=== PATIENT | female | born 1950 | race Caucasian/White ===

== ENCOUNTER 2022-09-21 01:31 | Inpatient (IN) ==
[2022-09-21 02:05] LABS: Basophils # 0.1 10*3/uL (0.0-0.2); Basophils % 0.6 % (0.0-0.8); Eosinophils # 0.4 10*3/uL (0.0-0.87); Eosinophils % 4.4 % (0.00-10.9); Hematocrit 35.6 VOL% (35.7-47.0); Hemoglobin 11.6 GM/DL (12.0-16.0); Immature Granulocytes % 0.3 %; Immature Granulocytes Absolute 0.02 #; Lymphocytes # 2.6 10*3/uL (1.4-4.0); Lymphocytes % 32.4 % (21.3-54.2); Mean Corpuscular HGB Conc 32.6 GM/DL (32-36); Mean Corpuscular Volume 94.4 FL (87-102); Mean Platelet Volume 11.3 FL (9.6-12.0); Monocytes # 0.6 10*3/uL (0.11-0.8); Monocytes % 7.6 % (1.7-12.7); Neutrophils % 54.7 % (38.7-73.9); Platelet Count 162 T/CUMM (130-400); Red Blood Count 3.77 MC/CUMM (3.8-5.5); Red Cell Distribution Width 15.5 % (9.3-17.3); White Blood Count 7.9 T/CUMM (4-12)
[2022-09-21 02:17] LABS: INR 1.1
[2022-09-21 02:18] LABS: Albumin 3.8 G/DL (3.4-5.0); Bilirubin,Total 0.8 MG/DL (0.20-1.00); Calcium 9.4 MG/DL (8.5-10.1); Osmolality,Calculated 282.8 MOS/KG (273-304); Potassium 4.1 MMOL/L (3.5-5.1); Total Protein 6.7 G/DL (6.4-8.2)
[2022-09-21] MEDS ORDERED: ALUMINUM/MAGNES/SIMETH MAX STR 30 ML UDCUP PO PRN (03:40)
[2022-09-21] MEDS ORDERED: ACETAMINOPHEN 325 MG TABLET PO PRN (03:40)
[2022-09-21 03:58] LABS: Arterial Base Excess iSTAT -1 MMOL/L (-2.5-2.5); Arterial Bicarbonate iSTAT 21.6 MMOL/L (20-26); Arterial O2 Saturation iSTAT 94 % (95-100); Arterial PCO2 iSTAT 29 MM HG (35-48); Arterial PO2 iSTAT 63 MM HG (80-95); Arterial Total CO2 iSTAT 23 MMO/L (23-27); Arterial pH iSTAT 7.489 (7.35-7.45)
[2022-09-21] MEDS: ALBUTEROL 2.5 MG/3 ML NEB RESP TX SCH ×4 (04:05→19:21)
[2022-09-21] MEDS: cefTRIAXone 1,000 MG in SODIUM CHLORIDE 0.9% 100 ML IV SCH (04:30)
[2022-09-21] MEDS: AZITHROMYCIN INJ 500 MG in SODIUM CHLORIDE 0.9% 250 ML IV SCH (05:20)
[2022-09-21] MEDS ORDERED: MORPHINE 2 MG/1 ML SYRINGE IV STA (05:56)
[2022-09-21] MEDS ORDERED: MORPHINE 2 MG/1 ML SYRINGE ONE (05:57)
[2022-09-21] MEDS ORDERED: FUROSEMIDE 40 MG/4 ML VIAL IV STA (06:21)
[2022-09-21] MEDS ORDERED: COLCHICINE 0.6 MG CAPSULE PO PRN (07:53)
[2022-09-21] MEDS ORDERED: CYANOCOBALAMIN 500 MCG TABLET PO SCH (09:00)
[2022-09-21] MEDS: APIXABAN 2.5 MG TABLET PO SCH ×2 (10:48→21:58)
[2022-09-21] MEDS: allopurinoL 300 MG TABLET PO SCH (10:51)
[2022-09-21] MEDS: MULTIVITAMIN (CENTRUM) TABLET PO SCH (10:51)
[2022-09-21] MEDS: CLOPIDOGREL 75 MG TABLET PO SCH (10:52)
[2022-09-21] MEDS: POTASSIUM CHLORIDE 20 MEQ TABLET PO SCH (10:53)
[2022-09-21] MEDS: ASCORBIC ACID 500 MG TABLET PO SCH (10:53)
[2022-09-21] MEDS: PANTOPRAZOLE 40 MG TABLET PO SCH (10:53)
[2022-09-21] MEDS: TOBRAMYCIN/DEXAMETHASONE 0.3%-0.1% OPH SUSP 2.5 ML BOTTLE LEFT EYE SCH ×4 (10:54→22:07)
[2022-09-21] MEDS: NABUMETONE 500 MG TABLET PO SCH ×2 (10:55→21:58)
[2022-09-21] MEDS: POLYETHYLENE GLYCOL POWDER 17 GM PACK PO SCH (10:55)
[2022-09-21] MEDS: PILOCARPINE 5 MG TABLET PO SCH (10:56)
[2022-09-21] MEDS: NITROGLYCERIN 2% OINT 1 INCH/GM PACK TOP SCH (10:56)
[2022-09-21] MEDS ORDERED: GLUCAGON 1 MG VIAL IM PRN (11:37)
[2022-09-21] MEDS ORDERED: DEXTROSE 10% 250 ML BAG IV PRN (11:37)
[2022-09-21] MEDS: DOCUSATE SODIUM 100 MG CAPSULE PO SCH ×2 (13:09→21:58)
[2022-09-21] MEDS: HYDROXYCHLOROQUINE 200 MG TABLET PO SCH (13:09)
[2022-09-21] MEDS: SPIRONOLACTONE 25 MG TABLET PO SCH (13:53)
[2022-09-21] MEDS: BRIMONIDINE 0.1% OPH SOLN 5 ML BOTTLE BOTH EYES SCH ×2 (13:54→22:03)
[2022-09-21] MEDS: CYANOCOBALAMIN 500 MCG TABLET PO SCH (13:54)
[2022-09-21] MEDS: FUROSEMIDE 40 MG/4 ML VIAL IV SCH (13:54)
[2022-09-21] MEDS: INSULIN REGULAR 100 UNIT/ML SUBCUT SCH (18:23)
[2022-09-21] MEDS: ASPIRIN CHEW 81 MG TABLET PO SCH (21:58)
[2022-09-21] MEDS: ROSUVASTATIN 20 MG TABLET PO SCH (21:58)
[2022-09-22] MEDS: ALBUTEROL 2.5 MG/3 ML NEB RESP TX SCH ×4 (00:20→19:30)
[2022-09-22] MEDS ORDERED: FUROSEMIDE 40 MG/4 ML VIAL IV STA (01:59)
[2022-09-22] MEDS: (Semaglutide [Ozempic] 0.25 mg or 0.5 mg(2 mg/1.5 mL) Pen Injecto SUBCUT SCH (03:49)
[2022-09-22 04:32] LABS: Basophils % 0.5 % (0.0-0.8); Eosinophils # 0.4 10*3/uL (0.0-0.87); Eosinophils % 4.7 % (0.00-10.9); Hematocrit 33.4 VOL% (35.7-47.0); Hemoglobin 10.7 GM/DL (12.0-16.0); Immature Granulocytes % 0.3 %; Immature Granulocytes Absolute 0.02 #; Lymphocytes % 26.6 % (21.3-54.2); Mean Corpuscular Volume 94.9 FL (87-102); Mean Platelet Volume 11.3 FL (9.6-12.0); Monocytes # 0.7 10*3/uL (0.11-0.8); Monocytes % 9.9 % (1.7-12.7); Platelet Count 150 T/CUMM (130-400); Red Blood Count 3.52 MC/CUMM (3.8-5.5); Red Cell Distribution Width 15.5 % (9.3-17.3); White Blood Count 7.4 T/CUMM (4-12)
[2022-09-22] MEDS: cefTRIAXone 1,000 MG in SODIUM CHLORIDE 0.9% 100 ML IV SCH (04:33)
[2022-09-22] MEDS: AZITHROMYCIN INJ 500 MG in SODIUM CHLORIDE 0.9% 250 ML IV SCH (05:06)
[2022-09-22] MEDS: BRIMONIDINE 0.1% OPH SOLN 5 ML BOTTLE BOTH EYES SCH ×3 (05:07→22:03)
[2022-09-22 05:11] LABS: Calcium 9.3 MG/DL (8.5-10.1); Osmolality,Calculated 280.1 MOS/KG (273-304); Potassium 3.8 MMOL/L (3.5-5.1); Thyroid Stimulating Hormone 2.69 uIU/ml (0.358-3.74)
[2022-09-22] MEDS ORDERED: DIAZEPAM 5 MG TABLET PO ONE (07:00)
[2022-09-22] MEDS ORDERED: diphenhydrAMINE CAP 25 MG CAPSULE PO ONE (07:00)
[2022-09-22] MEDS: ONDANSETRON 4 MG/2 ML VIAL IV PRN (07:00)
[2022-09-22] MEDS: INSULIN REGULAR 100 UNIT/ML SUBCUT SCH ×2 (08:13→18:31)
[2022-09-22] MEDS: CLOPIDOGREL 75 MG TABLET PO SCH (09:02)
[2022-09-22] MEDS: SPIRONOLACTONE 25 MG TABLET PO SCH (09:02)
[2022-09-22] MEDS: TOBRAMYCIN/DEXAMETHASONE 0.3%-0.1% OPH SUSP 2.5 ML BOTTLE LEFT EYE SCH ×4 (09:04→22:03)
[2022-09-22] MEDS: FUROSEMIDE 40 MG/4 ML VIAL IV SCH (09:04)
[2022-09-22] MEDS: APIXABAN 2.5 MG TABLET PO SCH ×2 (10:44→22:02)
[2022-09-22] MEDS: MULTIVITAMIN (CENTRUM) TABLET PO SCH (10:44)
[2022-09-22] MEDS: POTASSIUM CHLORIDE 20 MEQ TABLET PO SCH (10:44)
[2022-09-22] MEDS: DOCUSATE SODIUM 100 MG CAPSULE PO SCH ×2 (10:44→22:02)
[2022-09-22] MEDS: NITROGLYCERIN 2% OINT 1 INCH/GM PACK TOP SCH (10:45)
[2022-09-22] MEDS: POLYETHYLENE GLYCOL POWDER 17 GM PACK PO SCH (10:45)
[2022-09-22] MEDS: HYDROXYCHLOROQUINE 200 MG TABLET PO SCH (10:45)
[2022-09-22] MEDS: PANTOPRAZOLE 40 MG TABLET PO SCH (10:46)
[2022-09-22] MEDS: allopurinoL 300 MG TABLET PO SCH (10:46)
[2022-09-22] MEDS: ASCORBIC ACID 500 MG TABLET PO SCH (10:46)
[2022-09-22] MEDS: CYANOCOBALAMIN 500 MCG TABLET PO SCH (10:46)
[2022-09-22] MEDS: PILOCARPINE 5 MG TABLET PO SCH (10:46)
[2022-09-22] MEDS: NABUMETONE 500 MG TABLET PO SCH ×2 (10:46→22:02)
[2022-09-22] MEDS ORDERED: SODIUM CHLORIDE 0.45% 500 ML IV SCH (11:00)
[2022-09-22] MEDS ORDERED: HYDROmorphone 1 MG/1 ML SYRINGE ONE (12:13)
[2022-09-22] MEDS ORDERED: MIDAZOLAM 2 MG/2 ML VIAL ONE (12:13)
[2022-09-22] MEDS ORDERED: HEPARIN/NACL 0.9% 2 UNITS/ML 2,000 UNIT/1,000 ML BAG IV ONE (12:15)
[2022-09-22] MEDS ORDERED: NITROGLYCERIN DRIP 50 MG/250 ML BOTTLE IV ONE (12:23)
[2022-09-22] MEDS ORDERED: VERAPAMIL 5 MG/2 ML VIAL ONE (12:23)
[2022-09-22] MEDS ORDERED: ONDANSETRON 4 MG/2 ML VIAL ONE (12:36)
[2022-09-22] MEDS ORDERED: NALOXONE 0.4 MG/ML VIAL IV ONE (15:18)
[2022-09-22] MEDS ORDERED: flumazeniL 0.5 MG/5 ML VIAL IV ONE (15:30)
[2022-09-22] MEDS ORDERED: FUROSEMIDE 40 MG/4 ML VIAL IV SCH (16:00)
[2022-09-22 16:06] LABS: Arterial Base Excess iSTAT -2 MMOL/L (-2.5-2.5); Arterial Bicarbonate iSTAT 22.5 MMOL/L (20-26); Arterial O2 Saturation iSTAT 96 % (95-100); Arterial PCO2 iSTAT 36 MM HG (35-48); Arterial PO2 iSTAT 79 MM HG (80-95); Arterial Total CO2 iSTAT 24 MMO/L (23-27); Arterial pH iSTAT 7.402 (7.35-7.45)
[2022-09-22] MEDS ORDERED: BENZONATATE 100 MG CAPSULE PO PRN (18:27)
[2022-09-22] MEDS: ISOSORBIDE MONONITRATE 30 MG TABLET PO SCH (18:30)
[2022-09-22 21:43] LABS: Hyaline Casts,Urine 9 /LPF (0-3); Mucus,Urine Occasional /LPF (Occasional)
[2022-09-22 21:44] LABS: Bilirubin,Urine Negative (Negative); Blood, Urine Trace mg/dL (Negative); Glucose,Urine (UA) Negative (Negative); Ketones,Urine Negative (Negative); Nitrite,Urine Negative (Negative); Protein,Urine Negative (Negative); Urine Appearance Clear (Clear); Urine Color Yellow (Yellow); Urine Specific Gravity 1.015 (1.001-1.035); Urine Urobilinogen 0.2 eU/dL (<2.0)
[2022-09-22] MEDS: ASPIRIN CHEW 81 MG TABLET PO SCH (22:02)
[2022-09-22] MEDS: ROSUVASTATIN 20 MG TABLET PO SCH (22:02)
[2022-09-23] MEDS: ALBUTEROL 2.5 MG/3 ML NEB RESP TX SCH ×4 (00:35→19:40)
[2022-09-23] MEDS: cefTRIAXone 1,000 MG in SODIUM CHLORIDE 0.9% 100 ML IV SCH (04:42)
[2022-09-23 05:20] LABS: Basophils # 0.1 10*3/uL (0.0-0.2); Basophils % 0.7 % (0.0-0.8); Eosinophils # 0.3 10*3/uL (0.0-0.87); Eosinophils % 3.5 % (0.00-10.9); Hematocrit 33.3 VOL% (35.7-47.0); Hemoglobin 10.8 GM/DL (12.0-16.0); Immature Granulocytes % 0.3 %; Immature Granulocytes Absolute 0.02 #; Lymphocytes # 1.5 10*3/uL (1.4-4.0); Lymphocytes % 21.3 % (21.3-54.2); Mean Corpuscular HGB Conc 32.4 GM/DL (32-36); Mean Corpuscular Volume 95.7 FL (87-102); Monocytes # 0.8 10*3/uL (0.11-0.8); Monocytes % 10.4 % (1.7-12.7); Neutrophils % 63.8 % (38.7-73.9); Platelet Count 145 T/CUMM (130-400); Red Blood Count 3.48 MC/CUMM (3.8-5.5); Red Cell Distribution Width 15.3 % (9.3-17.3); White Blood Count 7.2 T/CUMM (4-12)
[2022-09-23 05:52] LABS: Calcium 9.4 MG/DL (8.5-10.1); Osmolality,Calculated 279.2 MOS/KG (273-304); Potassium 4.1 MMOL/L (3.5-5.1)
[2022-09-23] MEDS: BRIMONIDINE 0.1% OPH SOLN 5 ML BOTTLE BOTH EYES SCH ×4 (05:52→21:06)
[2022-09-23] MEDS: AZITHROMYCIN INJ 500 MG in SODIUM CHLORIDE 0.9% 250 ML IV SCH (05:52)
[2022-09-23] MEDS: ONDANSETRON 4 MG/2 ML VIAL IV PRN ×2 (06:45→23:44)
[2022-09-23] MEDS ORDERED: NITROGLYCERIN SL 0.4 MG TABLET SL ONE (07:00)
[2022-09-23] MEDS: APIXABAN 2.5 MG TABLET PO SCH ×3 (07:03→20:09)
[2022-09-23] MEDS: CLOPIDOGREL 75 MG TABLET PO SCH ×2 (07:03→10:02)
[2022-09-23] MEDS: ISOSORBIDE MONONITRATE 30 MG TABLET PO SCH ×2 (07:03→10:02)
[2022-09-23 07:27] LABS: Arterial Base Excess iSTAT -3 MMOL/L (-2.5-2.5); Arterial Bicarbonate iSTAT 21.7 MMOL/L (20-26); Arterial O2 Saturation iSTAT 93 % (95-100); Arterial PCO2 iSTAT 35 MM HG (35-48); Arterial PO2 iSTAT 66 MM HG (80-95); Arterial Total CO2 iSTAT 23 MMO/L (23-27); Arterial pH iSTAT 7.403 (7.35-7.45)
[2022-09-23] MEDS: FUROSEMIDE 40 MG/4 ML VIAL IV SCH ×2 (08:22→16:54)
[2022-09-23] MEDS: INSULIN REGULAR 100 UNIT/ML SUBCUT SCH ×2 (09:59→17:47)
[2022-09-23] MEDS: SPIRONOLACTONE 50 MG TABLET PO SCH (10:01)
[2022-09-23] MEDS: MULTIVITAMIN (CENTRUM) TABLET PO SCH (10:01)
[2022-09-23] MEDS: POLYETHYLENE GLYCOL POWDER 17 GM PACK PO SCH (10:02)
[2022-09-23] MEDS: DOCUSATE SODIUM 100 MG CAPSULE PO SCH ×2 (10:02→20:10)
[2022-09-23] MEDS: POTASSIUM CHLORIDE 20 MEQ TABLET PO SCH (10:02)
[2022-09-23] MEDS: DAPAGLIFLOZIN 10 MG TABLET PO SCH (10:02)
[2022-09-23] MEDS: HYDROXYCHLOROQUINE 200 MG TABLET PO SCH (10:02)
[2022-09-23] MEDS: ASCORBIC ACID 500 MG TABLET PO SCH (10:03)
[2022-09-23] MEDS: CYANOCOBALAMIN 500 MCG TABLET PO SCH (10:03)
[2022-09-23] MEDS: PILOCARPINE 5 MG TABLET PO SCH (10:03)
[2022-09-23] MEDS: PANTOPRAZOLE 40 MG TABLET PO SCH (10:03)
[2022-09-23] MEDS: NABUMETONE 500 MG TABLET PO SCH ×2 (10:03→20:09)
[2022-09-23] MEDS: AZITHROMYCIN 250 MG TABLET PO SCH (10:04)
[2022-09-23] MEDS: allopurinoL 300 MG TABLET PO SCH (10:04)
[2022-09-23] MEDS: TOBRAMYCIN/DEXAMETHASONE 0.3%-0.1% OPH SUSP 2.5 ML BOTTLE LEFT EYE SCH ×4 (10:05→20:12)
[2022-09-23] MEDS: RANOLAZINE 500 MG TABLET PO SCH ×2 (11:38→20:10)
[2022-09-23] MEDS: ASPIRIN CHEW 81 MG TABLET PO SCH (20:09)
[2022-09-23] MEDS: NITROGLYCERIN 2% OINT 1 INCH/GM PACK TOP SCH (20:09)
[2022-09-23] MEDS: ROSUVASTATIN 20 MG TABLET PO SCH (20:10)
[2022-09-23] MEDS ORDERED: MORPHINE 2 MG/1 ML SYRINGE IV ONE (23:35)
[2022-09-23] MEDS ORDERED: MORPHINE 2 MG/1 ML SYRINGE ONE (23:38)
[2022-09-24] MEDS: ALBUTEROL 2.5 MG/3 ML NEB RESP TX SCH ×4 (00:45→19:40)
[2022-09-24] MEDS: BRIMONIDINE 0.1% OPH SOLN 5 ML BOTTLE BOTH EYES SCH ×4 (05:29→21:41)
[2022-09-24 05:36] LABS: Basophils # 0.1 10*3/uL (0.0-0.2); Basophils % 0.6 % (0.0-0.8); Eosinophils # 0.4 10*3/uL (0.0-0.87); Eosinophils % 4.4 % (0.00-10.9); Hematocrit 30.9 VOL% (35.7-47.0); Immature Granulocytes % 0.5 %; Immature Granulocytes Absolute 0.04 #; Lymphocytes # 1.8 10*3/uL (1.4-4.0); Lymphocytes % 22.2 % (21.3-54.2); Mean Corpuscular HGB Conc 32.4 GM/DL (32-36); Mean Corpuscular Volume 95.1 FL (87-102); Mean Platelet Volume 11.3 FL (9.6-12.0); Monocytes % 12.2 % (1.7-12.7); Neutrophils % 60.1 % (38.7-73.9); Platelet Count 149 T/CUMM (130-400); Red Blood Count 3.25 MC/CUMM (3.8-5.5); Red Cell Distribution Width 15.2 % (9.3-17.3)
[2022-09-24 05:56] LABS: Potassium 3.5 MMOL/L (3.5-5.1)
[2022-09-24] MEDS: FUROSEMIDE 40 MG/4 ML VIAL IV SCH (08:42)
[2022-09-24] MEDS: INSULIN REGULAR 100 UNIT/ML SUBCUT SCH ×2 (08:42→17:04)
[2022-09-24] MEDS: POLYETHYLENE GLYCOL POWDER 17 GM PACK PO SCH (08:46)
[2022-09-24] MEDS: PANTOPRAZOLE 40 MG TABLET PO SCH (08:49)
[2022-09-24] MEDS: MULTIVITAMIN (CENTRUM) TABLET PO SCH (08:49)
[2022-09-24] MEDS: SPIRONOLACTONE 50 MG TABLET PO SCH (08:49)
[2022-09-24] MEDS: allopurinoL 300 MG TABLET PO SCH (08:49)
[2022-09-24] MEDS: PILOCARPINE 5 MG TABLET PO SCH (08:49)
[2022-09-24] MEDS: AZITHROMYCIN 250 MG TABLET PO SCH (08:49)
[2022-09-24] MEDS: ASCORBIC ACID 500 MG TABLET PO SCH (08:50)
[2022-09-24] MEDS: POTASSIUM CHLORIDE 20 MEQ TABLET PO SCH (08:50)
[2022-09-24] MEDS: HYDROXYCHLOROQUINE 200 MG TABLET PO SCH (08:50)
[2022-09-24] MEDS: CLOPIDOGREL 75 MG TABLET PO SCH (08:50)
[2022-09-24] MEDS: DOCUSATE SODIUM 100 MG CAPSULE PO SCH ×2 (08:50→20:15)
[2022-09-24] MEDS: DAPAGLIFLOZIN 10 MG TABLET PO SCH (08:50)
[2022-09-24] MEDS: APIXABAN 2.5 MG TABLET PO SCH ×2 (08:50→20:15)
[2022-09-24] MEDS: CYANOCOBALAMIN 500 MCG TABLET PO SCH (08:50)
[2022-09-24] MEDS: NABUMETONE 500 MG TABLET PO SCH ×2 (08:50→20:15)
[2022-09-24] MEDS: RANOLAZINE 500 MG TABLET PO SCH ×2 (08:50→20:15)
[2022-09-24] MEDS: TOBRAMYCIN/DEXAMETHASONE 0.3%-0.1% OPH SUSP 2.5 ML BOTTLE LEFT EYE SCH ×4 (08:51→20:13)
[2022-09-24] MEDS: NITROGLYCERIN 2% OINT 1 INCH/GM PACK TOP SCH ×2 (08:51→20:15)
[2022-09-24] MEDS ORDERED: SODIUM PHOSPHATE ENEMA 133 ML BOTTLE RECTAL ONE (16:00)
[2022-09-24] MEDS: FUROSEMIDE 80 MG TABLET PO SCH (16:41)
[2022-09-24] MEDS: ROSUVASTATIN 20 MG TABLET PO SCH (20:14)
[2022-09-24] MEDS: ASPIRIN CHEW 81 MG TABLET PO SCH (20:15)
[2022-09-25] MEDS: ALBUTEROL 2.5 MG/3 ML NEB RESP TX SCH ×4 (00:35→19:35)
[2022-09-25] MEDS: BRIMONIDINE 0.1% OPH SOLN 5 ML BOTTLE BOTH EYES SCH ×3 (05:09→21:20)
[2022-09-25 05:22] LABS: Calcium 9.4 MG/DL (8.5-10.1); Osmolality,Calculated 286.8 MOS/KG (273-304); Potassium 3.6 MMOL/L (3.5-5.1)
[2022-09-25] MEDS ORDERED: MAGNESIUM HYDROXIDE SUSP 30 ML UDCUP PO ONE (08:57)
[2022-09-25] MEDS: CLOPIDOGREL 75 MG TABLET PO SCH (09:06)
[2022-09-25] MEDS: POTASSIUM CHLORIDE 20 MEQ TABLET PO SCH (09:06)
[2022-09-25] MEDS: NABUMETONE 500 MG TABLET PO SCH ×2 (09:06→20:10)
[2022-09-25] MEDS: NITROGLYCERIN 2% OINT 1 INCH/GM PACK TOP SCH (09:06)
[2022-09-25] MEDS: AZITHROMYCIN 250 MG TABLET PO SCH (09:06)
[2022-09-25] MEDS: RANOLAZINE 500 MG TABLET PO SCH ×2 (09:06→20:10)
[2022-09-25] MEDS: INSULIN REGULAR 100 UNIT/ML SUBCUT SCH ×2 (09:06→17:37)
[2022-09-25] MEDS: POLYETHYLENE GLYCOL POWDER 17 GM PACK PO SCH (09:06)
[2022-09-25] MEDS: ASCORBIC ACID 500 MG TABLET PO SCH (09:06)
[2022-09-25] MEDS: CYANOCOBALAMIN 500 MCG TABLET PO SCH (09:07)
[2022-09-25] MEDS: allopurinoL 300 MG TABLET PO SCH (09:07)
[2022-09-25] MEDS: MULTIVITAMIN (CENTRUM) TABLET PO SCH (09:07)
[2022-09-25] MEDS: APIXABAN 2.5 MG TABLET PO SCH ×2 (09:07→20:10)
[2022-09-25] MEDS: SPIRONOLACTONE 50 MG TABLET PO SCH (09:07)
[2022-09-25] MEDS: PILOCARPINE 5 MG TABLET PO SCH (09:07)
[2022-09-25] MEDS: HYDROXYCHLOROQUINE 200 MG TABLET PO SCH (09:07)
[2022-09-25] MEDS: DAPAGLIFLOZIN 10 MG TABLET PO SCH (09:07)
[2022-09-25] MEDS: PANTOPRAZOLE 40 MG TABLET PO SCH (09:07)
[2022-09-25] MEDS: FUROSEMIDE 80 MG TABLET PO SCH ×2 (09:08→16:07)
[2022-09-25] MEDS: TOBRAMYCIN/DEXAMETHASONE 0.3%-0.1% OPH SUSP 2.5 ML BOTTLE LEFT EYE SCH ×4 (09:08→20:10)
[2022-09-25] MEDS: DOCUSATE SODIUM 100 MG CAPSULE PO SCH ×2 (09:08→20:10)
[2022-09-25] MEDS ORDERED: metOLazone 2.5 MG TABLET PO ONE (10:38)
[2022-09-25] MEDS: ONDANSETRON 4 MG/2 ML VIAL IV PRN ×2 (12:31→15:50)
[2022-09-25] MEDS: PROMETHAZINE 25 MG/1 ML VIAL IM PRN ×2 (16:38→20:15)
[2022-09-25] MEDS: FUROSEMIDE 40 MG/4 ML VIAL IV SCH (16:38)
[2022-09-25] MEDS: ASPIRIN CHEW 81 MG TABLET PO SCH (20:10)
[2022-09-25] MEDS: ROSUVASTATIN 20 MG TABLET PO SCH (20:10)
[2022-09-26] MEDS: ALBUTEROL 2.5 MG/3 ML NEB RESP TX SCH ×4 (00:19→19:54)
[2022-09-26 05:14] LABS: Calcium 9.9 MG/DL (8.5-10.1); Osmolality,Calculated 283.4 MOS/KG (273-304); Potassium 4.2 MMOL/L (3.5-5.1)
[2022-09-26] MEDS: BRIMONIDINE 0.1% OPH SOLN 5 ML BOTTLE BOTH EYES SCH ×3 (05:40→21:34)
[2022-09-26] MEDS: FUROSEMIDE 40 MG/4 ML VIAL IV SCH (08:02)
[2022-09-26] MEDS: PILOCARPINE 5 MG TABLET PO SCH (08:07)
[2022-09-26] MEDS: HYDROXYCHLOROQUINE 200 MG TABLET PO SCH (08:07)
[2022-09-26] MEDS: DOCUSATE SODIUM 100 MG CAPSULE PO SCH ×2 (08:07→21:34)
[2022-09-26] MEDS: allopurinoL 300 MG TABLET PO SCH (08:07)
[2022-09-26] MEDS: CYANOCOBALAMIN 500 MCG TABLET PO SCH (08:07)
[2022-09-26] MEDS: NABUMETONE 500 MG TABLET PO SCH ×2 (08:07→21:34)
[2022-09-26] MEDS: AZITHROMYCIN 250 MG TABLET PO SCH (08:07)
[2022-09-26] MEDS: RANOLAZINE 500 MG TABLET PO SCH ×2 (08:07→21:34)
[2022-09-26] MEDS: DAPAGLIFLOZIN 10 MG TABLET PO SCH (08:07)
[2022-09-26] MEDS: MULTIVITAMIN (CENTRUM) TABLET PO SCH (08:08)
[2022-09-26] MEDS: CLOPIDOGREL 75 MG TABLET PO SCH (08:08)
[2022-09-26] MEDS: POTASSIUM CHLORIDE 20 MEQ TABLET PO SCH (08:08)
[2022-09-26] MEDS: APIXABAN 2.5 MG TABLET PO SCH ×2 (08:08→21:34)
[2022-09-26] MEDS: SPIRONOLACTONE 50 MG TABLET PO SCH (08:08)
[2022-09-26] MEDS: ASCORBIC ACID 500 MG TABLET PO SCH (08:08)
[2022-09-26] MEDS: PANTOPRAZOLE 40 MG TABLET PO SCH (08:09)
[2022-09-26] MEDS: TOBRAMYCIN/DEXAMETHASONE 0.3%-0.1% OPH SUSP 2.5 ML BOTTLE LEFT EYE SCH ×3 (08:11→21:34)
[2022-09-26] MEDS: ONDANSETRON 4 MG/2 ML VIAL IV PRN ×2 (08:17→21:45)
[2022-09-26] MEDS: POLYETHYLENE GLYCOL POWDER 17 GM PACK PO SCH (10:18)
[2022-09-26] MEDS: INSULIN REGULAR 100 UNIT/ML SUBCUT SCH ×2 (10:18→17:03)
[2022-09-26] MEDS ORDERED: DOBUTamine 500 MG/250 ML PREMIX IV ONE (11:02)
[2022-09-26] MEDS: DOBUTamine 500 MG/250 ML PREMIX IV SCH (11:30)
[2022-09-26] MEDS: ROSUVASTATIN 20 MG TABLET PO SCH (21:34)
[2022-09-26] MEDS: ASPIRIN CHEW 81 MG TABLET PO SCH (21:34)
[2022-09-26] MEDS: NITROGLYCERIN 2% OINT 1 INCH/GM PACK TOP SCH (21:34)
[2022-09-26] MEDS: PROMETHAZINE 25 MG/1 ML VIAL IM PRN (21:47)
[2022-09-26] MEDS: NYSTATIN 500,000 UNIT/5 ML UDCUP SWISH/SWAL SCH (23:35)
[2022-09-26] MEDS: CHLORHEXIDINE 0.12% ORAL RINSE 60 ML BOTTLE SWISH/SPIT SCH (23:35)
[2022-09-27] MEDS: APIXABAN 2.5 MG TABLET PO SCH ×3 (00:09→21:16)
[2022-09-27] MEDS: ASPIRIN CHEW 81 MG TABLET PO SCH ×2 (00:09→22:56)
[2022-09-27] MEDS: ROSUVASTATIN 20 MG TABLET PO SCH ×2 (00:09→22:56)
[2022-09-27] MEDS: DOCUSATE SODIUM 100 MG CAPSULE PO SCH ×3 (00:09→22:56)
[2022-09-27] MEDS: RANOLAZINE 500 MG TABLET PO SCH ×3 (00:10→22:58)
[2022-09-27] MEDS: NABUMETONE 500 MG TABLET PO SCH ×3 (00:10→22:58)
[2022-09-27] MEDS: ALBUTEROL 2.5 MG/3 ML NEB RESP TX SCH ×4 (00:44→20:05)
[2022-09-27 04:10] LABS: Basophils % 0.2 % (0.0-0.8); Eosinophils % 0.2 % (0.00-10.9); Hematocrit 32.7 VOL% (35.7-47.0); Hemoglobin 10.9 GM/DL (12.0-16.0); Immature Granulocytes % 0.5 %; Immature Granulocytes Absolute 0.06 #; Lymphocytes # 0.7 10*3/uL (1.4-4.0); Lymphocytes % 5.4 % (21.3-54.2); Mean Corpuscular HGB Conc 33.3 GM/DL (32-36); Mean Corpuscular Volume 92.6 FL (87-102); Mean Platelet Volume 11.1 FL (9.6-12.0); Monocytes # 1.2 10*3/uL (0.11-0.8); Monocytes % 8.9 % (1.7-12.7); Neutrophils % 84.8 % (38.7-73.9); Platelet Count 167 T/CUMM (130-400); Red Blood Count 3.53 MC/CUMM (3.8-5.5); Red Cell Distribution Width 15.4 % (9.3-17.3); White Blood Count 13.05 T/CUMM (4-12)
[2022-09-27 04:33] LABS: Calcium 9.5 MG/DL (8.5-10.1); Osmolality,Calculated 294.5 MOS/KG (273-304); Potassium 3.9 MMOL/L (3.5-5.1)
[2022-09-27] MEDS: BRIMONIDINE 0.1% OPH SOLN 5 ML BOTTLE BOTH EYES SCH ×3 (06:37→21:01)
[2022-09-27] MEDS: DOBUTamine 500 MG/250 ML PREMIX IV SCH (07:47)
[2022-09-27] MEDS: INSULIN REGULAR 100 UNIT/ML SUBCUT SCH ×3 (08:19→22:57)
[2022-09-27] MEDS: CHLORHEXIDINE 0.12% ORAL RINSE 60 ML BOTTLE SWISH/SPIT SCH ×2 (08:20→22:57)
[2022-09-27] MEDS: ONDANSETRON 4 MG/2 ML VIAL IV PRN ×3 (08:20→17:52)
[2022-09-27] MEDS: HYDROXYCHLOROQUINE 200 MG TABLET PO SCH (08:21)
[2022-09-27] MEDS: FUROSEMIDE 40 MG/4 ML VIAL IV SCH (08:27)
[2022-09-27] MEDS: PANTOPRAZOLE 40 MG TABLET PO SCH (08:28)
[2022-09-27] MEDS: NYSTATIN 500,000 UNIT/5 ML UDCUP SWISH/SWAL SCH ×5 (08:28→22:57)
[2022-09-27] MEDS: MULTIVITAMIN (CENTRUM) TABLET PO SCH (08:28)
[2022-09-27] MEDS: DAPAGLIFLOZIN 10 MG TABLET PO SCH (08:28)
[2022-09-27] MEDS: allopurinoL 300 MG TABLET PO SCH (08:28)
[2022-09-27] MEDS: POTASSIUM CHLORIDE 20 MEQ TABLET PO SCH (08:28)
[2022-09-27] MEDS: PILOCARPINE 5 MG TABLET PO SCH (08:28)
[2022-09-27] MEDS: CYANOCOBALAMIN 500 MCG TABLET PO SCH (08:29)
[2022-09-27] MEDS: SPIRONOLACTONE 50 MG TABLET PO SCH (08:29)
[2022-09-27] MEDS: ASCORBIC ACID 500 MG TABLET PO SCH (08:29)
[2022-09-27] MEDS: CLOPIDOGREL 75 MG TABLET PO SCH (08:29)
[2022-09-27] MEDS: NITROGLYCERIN 2% OINT 1 INCH/GM PACK TOP SCH (08:31)
[2022-09-27] MEDS: POLYETHYLENE GLYCOL POWDER 17 GM PACK PO SCH (08:32)
[2022-09-27] MEDS: TOBRAMYCIN/DEXAMETHASONE 0.3%-0.1% OPH SUSP 2.5 ML BOTTLE LEFT EYE SCH ×4 (08:32→20:55)
[2022-09-27 15:42] LABS: Arterial Base Excess iSTAT 3 MMOL/L (-2.5-2.5); Arterial Bicarbonate iSTAT 26.8 MMOL/L (20-26); Arterial O2 Saturation iSTAT 99 % (95-100); Arterial PCO2 iSTAT 38 MM HG (35-48); Arterial PO2 iSTAT 153 MM HG (80-95); Arterial Total CO2 iSTAT 28 MMO/L (23-27)
[2022-09-27] MEDS: PROMETHAZINE 25 MG/1 ML VIAL IM PRN ×2 (17:20→21:14)
[2022-09-28] MEDS: ALBUTEROL 2.5 MG/3 ML NEB RESP TX SCH ×4 (00:54→19:00)
[2022-09-28] MEDS: ONDANSETRON 4 MG/2 ML VIAL IV PRN ×2 (01:42→20:02)
[2022-09-28] MEDS: PROMETHAZINE 25 MG/1 ML VIAL IM PRN (02:00)
[2022-09-28] MEDS: APIXABAN 2.5 MG TABLET PO SCH ×3 (03:30→20:34)
[2022-09-28 05:08] LABS: Basophils % 0.1 % (0.0-0.8); Eosinophils # 0.1 10*3/uL (0.0-0.87); Eosinophils % 1.1 % (0.00-10.9); Hematocrit 30.8 VOL% (35.7-47.0); Hemoglobin 10.5 GM/DL (12.0-16.0); Immature Granulocytes % 0.5 %; Immature Granulocytes Absolute 0.05 #; Lymphocytes # 0.7 10*3/uL (1.4-4.0); Lymphocytes % 6.6 % (21.3-54.2); Mean Corpuscular HGB Conc 34.1 GM/DL (32-36); Mean Corpuscular Volume 90.6 FL (87-102); Mean Platelet Volume 11.6 FL (9.6-12.0); Monocytes % 9.1 % (1.7-12.7); Neutrophils % 82.6 % (38.7-73.9); Platelet Count 145 T/CUMM (130-400); Red Cell Distribution Width 15.2 % (9.3-17.3)
[2022-09-28 05:19] LABS: Calcium 9.4 MG/DL (8.5-10.1); Osmolality,Calculated 286.8 MOS/KG (273-304); Potassium 3.8 MMOL/L (3.5-5.1)
[2022-09-28] MEDS: DOBUTamine 500 MG/250 ML PREMIX IV SCH (05:20)
[2022-09-28] MEDS: BRIMONIDINE 0.1% OPH SOLN 5 ML BOTTLE BOTH EYES SCH ×3 (06:49→21:15)
[2022-09-28] MEDS: INSULIN REGULAR 100 UNIT/ML SUBCUT SCH ×4 (07:48→20:04)
[2022-09-28] MEDS ORDERED: BISACODYL 10 MG SUPP RECTAL ONE (10:12)
[2022-09-28] MEDS: MULTIVITAMIN (CENTRUM) TABLET PO SCH (10:47)
[2022-09-28] MEDS: DAPAGLIFLOZIN 10 MG TABLET PO SCH (10:47)
[2022-09-28] MEDS: POTASSIUM CHLORIDE 20 MEQ TABLET PO SCH (10:48)
[2022-09-28] MEDS: ASCORBIC ACID 500 MG TABLET PO SCH (10:49)
[2022-09-28] MEDS: NABUMETONE 500 MG TABLET PO SCH ×2 (10:50→20:36)
[2022-09-28] MEDS: CYANOCOBALAMIN 500 MCG TABLET PO SCH (10:50)
[2022-09-28] MEDS: RANOLAZINE 500 MG TABLET PO SCH (10:50)
[2022-09-28] MEDS: PILOCARPINE 5 MG TABLET PO SCH (10:50)
[2022-09-28] MEDS: CLOPIDOGREL 75 MG TABLET PO SCH (11:11)
[2022-09-28] MEDS: TOBRAMYCIN/DEXAMETHASONE 0.3%-0.1% OPH SUSP 2.5 ML BOTTLE LEFT EYE SCH ×4 (11:14→20:46)
[2022-09-28] MEDS: POLYETHYLENE GLYCOL POWDER 17 GM PACK PO SCH (11:14)
[2022-09-28] MEDS: DOCUSATE SODIUM 100 MG CAPSULE PO SCH ×2 (11:16→20:38)
[2022-09-28] MEDS: ISOSORBIDE MONONITRATE 30 MG TABLET PO SCH (11:16)
[2022-09-28] MEDS: NYSTATIN 500,000 UNIT/5 ML UDCUP SWISH/SWAL SCH ×4 (11:16→20:44)
[2022-09-28] MEDS: SPIRONOLACTONE 50 MG TABLET PO SCH (11:16)
[2022-09-28] MEDS: CHLORHEXIDINE 0.12% ORAL RINSE 60 ML BOTTLE SWISH/SPIT SCH ×2 (11:17→20:44)
[2022-09-28] MEDS: PANTOPRAZOLE 40 MG TABLET PO SCH (11:17)
[2022-09-28] MEDS: HYDROXYCHLOROQUINE 200 MG TABLET PO SCH (11:17)
[2022-09-28] MEDS: allopurinoL 300 MG TABLET PO SCH (11:18)
[2022-09-28] MEDS ORDERED: LACTULOSE 20 GM/30 ML UDCUP PO PRN (16:19)
[2022-09-28] MEDS: ROSUVASTATIN 20 MG TABLET PO SCH (20:34)
[2022-09-28] MEDS: ASPIRIN CHEW 81 MG TABLET PO SCH (20:34)
[2022-09-29] MEDS: ALBUTEROL 2.5 MG/3 ML NEB RESP TX SCH ×4 (01:04→19:15)
[2022-09-29] MEDS: DOBUTamine 500 MG/250 ML PREMIX IV SCH ×2 (02:30→22:29)
[2022-09-29] MEDS: ONDANSETRON 4 MG/2 ML VIAL IV PRN ×3 (02:55→16:30)
[2022-09-29 04:01] LABS: Arterial Base Excess iSTAT 4 MMOL/L (-2.5-2.5); Arterial Bicarbonate iSTAT 27.5 MMOL/L (20-26); Arterial O2 Saturation iSTAT 99 % (95-100); Arterial PCO2 iSTAT 36 MM HG (35-48); Arterial PO2 iSTAT 110 MM HG (80-95); Arterial Total CO2 iSTAT 29 MMO/L (23-27); Arterial pH iSTAT 7.486 (7.35-7.45)
[2022-09-29] MEDS: (Semaglutide [Ozempic] 0.25 mg or 0.5 mg(2 mg/1.5 mL) Pen Injecto SUBCUT SCH (04:10)
[2022-09-29 05:00] LABS: Basophils % 0.1 % (0.0-0.8); Eosinophils # 0.2 10*3/uL (0.0-0.87); Eosinophils % 1.4 % (0.00-10.9); Hemoglobin 10.7 GM/DL (12.0-16.0); Immature Granulocytes % 0.5 %; Immature Granulocytes Absolute 0.06 #; Lymphocytes # 0.8 10*3/uL (1.4-4.0); Lymphocytes % 7.3 % (21.3-54.2); Mean Corpuscular HGB Conc 33.4 GM/DL (32-36); Mean Corpuscular Volume 90.7 FL (87-102); Mean Platelet Volume 11.6 FL (9.6-12.0); Monocytes % 9.1 % (1.7-12.7); Neutrophils % 81.6 % (38.7-73.9); Platelet Count 151 T/CUMM (130-400); Red Blood Count 3.53 MC/CUMM (3.8-5.5); Red Cell Distribution Width 15.2 % (9.3-17.3); White Blood Count 11.04 T/CUMM (4-12)
[2022-09-29 05:20] LABS: Albumin 2.8 G/DL (3.4-5.0); Calcium 9.7 MG/DL (8.5-10.1); Osmolality,Calculated 287.4 MOS/KG (273-304); Potassium 3.5 MMOL/L (3.5-5.1); Total Protein 6.5 G/DL (6.4-8.2)
[2022-09-29] MEDS: BRIMONIDINE 0.1% OPH SOLN 5 ML BOTTLE BOTH EYES SCH ×3 (05:46→23:29)
[2022-09-29] MEDS: SPIRONOLACTONE 50 MG TABLET PO SCH (10:27)
[2022-09-29] MEDS: MULTIVITAMIN (CENTRUM) TABLET PO SCH (10:27)
[2022-09-29] MEDS: INSULIN REGULAR 100 UNIT/ML SUBCUT SCH ×4 (10:27→22:30)
[2022-09-29] MEDS: DOCUSATE SODIUM 100 MG CAPSULE PO SCH ×2 (10:31→22:29)
[2022-09-29] MEDS: APIXABAN 2.5 MG TABLET PO SCH ×2 (10:31→22:29)
[2022-09-29] MEDS: POTASSIUM CHLORIDE 20 MEQ TABLET PO SCH (10:32)
[2022-09-29] MEDS: DAPAGLIFLOZIN 10 MG TABLET PO SCH (10:32)
[2022-09-29] MEDS: HYDROXYCHLOROQUINE 200 MG TABLET PO SCH (10:32)
[2022-09-29] MEDS: POLYETHYLENE GLYCOL POWDER 17 GM PACK PO SCH (10:32)
[2022-09-29] MEDS: CHLORHEXIDINE 0.12% ORAL RINSE 60 ML BOTTLE SWISH/SPIT SCH ×2 (10:32→22:30)
[2022-09-29] MEDS: NYSTATIN 500,000 UNIT/5 ML UDCUP SWISH/SWAL SCH ×4 (10:32→22:30)
[2022-09-29] MEDS: CLOPIDOGREL 75 MG TABLET PO SCH (10:32)
[2022-09-29] MEDS: ISOSORBIDE MONONITRATE 30 MG TABLET PO SCH (10:32)
[2022-09-29] MEDS: allopurinoL 300 MG TABLET PO SCH (10:33)
[2022-09-29] MEDS: PANTOPRAZOLE 40 MG TABLET PO SCH (10:33)
[2022-09-29] MEDS: TOBRAMYCIN/DEXAMETHASONE 0.3%-0.1% OPH SUSP 2.5 ML BOTTLE LEFT EYE SCH ×4 (10:33→23:29)
[2022-09-29] MEDS: PILOCARPINE 5 MG TABLET PO SCH (10:33)
[2022-09-29] MEDS: NABUMETONE 500 MG TABLET PO SCH ×2 (10:33→22:30)
[2022-09-29] MEDS: ASCORBIC ACID 500 MG TABLET PO SCH (10:33)
[2022-09-29] MEDS: CYANOCOBALAMIN 500 MCG TABLET PO SCH (10:33)
[2022-09-29] MEDS: ASPIRIN CHEW 81 MG TABLET PO SCH (22:29)
[2022-09-30] MEDS: ALBUTEROL 2.5 MG/3 ML NEB RESP TX SCH ×4 (00:14→19:33)
[2022-09-30 03:45] LABS: Arterial Base Excess iSTAT 5 MMOL/L (-2.5-2.5); Arterial Bicarbonate iSTAT 27.7 MMOL/L (20-26); Arterial O2 Saturation iSTAT 95 % (95-100); Arterial PCO2 iSTAT 35 MM HG (35-48); Arterial PO2 iSTAT 70 MM HG (80-95); Arterial Total CO2 iSTAT 29 MMO/L (23-27); Arterial pH iSTAT 7.503 (7.35-7.45)
[2022-09-30 04:22] LABS: Eosinophils # 0.2 10*3/uL (0.0-0.87); Eosinophils % 1.6 % (0.00-10.9); Hematocrit 31.3 VOL% (35.7-47.0); Hemoglobin 10.6 GM/DL (12.0-16.0); Immature Granulocytes % 0.5 %; Immature Granulocytes Absolute 0.05 #; Lymphocytes # 0.6 10*3/uL (1.4-4.0); Lymphocytes % 6.3 % (21.3-54.2); Mean Corpuscular HGB Conc 33.9 GM/DL (32-36); Mean Platelet Volume 11.1 FL (9.6-12.0); Monocytes % 10.2 % (1.7-12.7); Neutrophils % 81.4 % (38.7-73.9); Platelet Count 170 T/CUMM (130-400); Red Blood Count 3.44 MC/CUMM (3.8-5.5); Red Cell Distribution Width 14.9 % (9.3-17.3)
[2022-09-30 04:54] LABS: Albumin 2.7 G/DL (3.4-5.0); Bilirubin,Total 0.9 MG/DL (0.20-1.00); Calcium 9.9 MG/DL (8.5-10.1); Osmolality,Calculated 278.8 MOS/KG (273-304); Potassium 3.3 MMOL/L (3.5-5.1); Total Protein 6.5 G/DL (6.4-8.2)
[2022-09-30] MEDS: BRIMONIDINE 0.1% OPH SOLN 5 ML BOTTLE BOTH EYES SCH ×3 (06:42→21:35)
[2022-09-30] MEDS: INSULIN REGULAR 100 UNIT/ML SUBCUT SCH ×4 (07:54→21:37)
[2022-09-30] MEDS: PANTOPRAZOLE 40 MG TABLET PO SCH (09:34)
[2022-09-30] MEDS: APIXABAN 2.5 MG TABLET PO SCH ×2 (09:34→21:36)
[2022-09-30] MEDS: CLOPIDOGREL 75 MG TABLET PO SCH (09:34)
[2022-09-30] MEDS: ASCORBIC ACID 500 MG TABLET PO SCH (09:34)
[2022-09-30] MEDS: NYSTATIN 500,000 UNIT/5 ML UDCUP SWISH/SWAL SCH ×4 (09:34→21:38)
[2022-09-30] MEDS: PILOCARPINE 5 MG TABLET PO SCH (09:34)
[2022-09-30] MEDS: POTASSIUM CHLORIDE 20 MEQ TABLET PO SCH (09:35)
[2022-09-30] MEDS: HYDROXYCHLOROQUINE 200 MG TABLET PO SCH (09:35)
[2022-09-30] MEDS: allopurinoL 300 MG TABLET PO SCH (09:35)
[2022-09-30] MEDS: MULTIVITAMIN (CENTRUM) TABLET PO SCH (09:35)
[2022-09-30] MEDS: POLYETHYLENE GLYCOL POWDER 17 GM PACK PO SCH (09:35)
[2022-09-30] MEDS: CYANOCOBALAMIN 500 MCG TABLET PO SCH (09:35)
[2022-09-30] MEDS: SPIRONOLACTONE 50 MG TABLET PO SCH (09:35)
[2022-09-30] MEDS: ISOSORBIDE MONONITRATE 30 MG TABLET PO SCH (09:35)
[2022-09-30] MEDS: DAPAGLIFLOZIN 10 MG TABLET PO SCH (09:35)
[2022-09-30] MEDS: TOBRAMYCIN/DEXAMETHASONE 0.3%-0.1% OPH SUSP 2.5 ML BOTTLE LEFT EYE SCH ×4 (09:37→21:36)
[2022-09-30] MEDS: NABUMETONE 500 MG TABLET PO SCH ×2 (09:37→21:36)
[2022-09-30] MEDS: DOCUSATE SODIUM 100 MG CAPSULE PO SCH ×2 (09:38→21:36)
[2022-09-30] MEDS: CHLORHEXIDINE 0.12% ORAL RINSE 60 ML BOTTLE SWISH/SPIT SCH ×2 (09:38→21:37)
[2022-09-30] MEDS ORDERED: FUROSEMIDE 40 MG/4 ML VIAL IV ONE (11:29)
[2022-09-30] MEDS: DOBUTamine 500 MG/250 ML PREMIX IV SCH (21:32)
[2022-09-30] MEDS: ASPIRIN CHEW 81 MG TABLET PO SCH (21:36)
[2022-10-01] MEDS: ALBUTEROL 2.5 MG/3 ML NEB RESP TX SCH ×4 (00:24→19:27)
[2022-10-01 04:44] LABS: Arterial Base Excess iSTAT 4 MMOL/L (-2.5-2.5); Arterial Bicarbonate iSTAT 26.6 MMOL/L (20-26); Arterial O2 Saturation iSTAT 96 % (95-100); Arterial PCO2 iSTAT 31 MM HG (35-48); Arterial PO2 iSTAT 71 MM HG (80-95); Arterial Total CO2 iSTAT 28 MMO/L (23-27)
[2022-10-01] MEDS: BRIMONIDINE 0.1% OPH SOLN 5 ML BOTTLE BOTH EYES SCH ×3 (06:05→21:47)
[2022-10-01 06:17] LABS: Albumin 2.8 G/DL (3.4-5.0); Bilirubin,Total 1.1 MG/DL (0.20-1.00); Calcium 9.8 MG/DL (8.5-10.1); Osmolality,Calculated 279.1 MOS/KG (273-304); Potassium 3.6 MMOL/L (3.5-5.1); Total Protein 6.6 G/DL (6.4-8.2)
[2022-10-01 06:23] LABS: Basophils % 0.1 % (0.0-0.8); Eosinophils # 0.4 10*3/uL (0.0-0.87); Eosinophils % 3.8 % (0.00-10.9); Hematocrit 31.2 VOL% (35.7-47.0); Hemoglobin 10.3 GM/DL (12.0-16.0); Immature Granulocytes % 0.9 %; Immature Granulocytes Absolute 0.08 #; Lymphocytes # 0.8 10*3/uL (1.4-4.0); Mean Platelet Volume 11.2 FL (9.6-12.0); Monocytes # 1.2 10*3/uL (0.11-0.8); Monocytes % 12.8 % (1.7-12.7); NRBC # 0.02 10*3/uL; Neutrophils % 73.4 % (38.7-73.9); Platelet Count 196 T/CUMM (130-400); Red Blood Count 3.43 MC/CUMM (3.8-5.5); Red Cell Distribution Width 15.1 % (9.3-17.3); White Blood Count 9.21 T/CUMM (4-12)
[2022-10-01] MEDS: POLYETHYLENE GLYCOL POWDER 17 GM PACK PO SCH (08:57)
[2022-10-01] MEDS: FUROSEMIDE 40 MG/4 ML VIAL IV SCH (08:58)
[2022-10-01] MEDS: INSULIN REGULAR 100 UNIT/ML SUBCUT SCH ×4 (08:59→20:50)
[2022-10-01] MEDS: DOCUSATE SODIUM 100 MG CAPSULE PO SCH ×2 (08:59→20:22)
[2022-10-01] MEDS: APIXABAN 2.5 MG TABLET PO SCH (09:01)
[2022-10-01] MEDS: CLOPIDOGREL 75 MG TABLET PO SCH (09:01)
[2022-10-01] MEDS: NABUMETONE 500 MG TABLET PO SCH ×2 (09:02→20:22)
[2022-10-01] MEDS: PILOCARPINE 5 MG TABLET PO SCH (09:02)
[2022-10-01] MEDS: MULTIVITAMIN (CENTRUM) TABLET PO SCH (09:05)
[2022-10-01] MEDS: PANTOPRAZOLE 40 MG TABLET PO SCH (09:05)
[2022-10-01] MEDS: ASCORBIC ACID 500 MG TABLET PO SCH (09:05)
[2022-10-01] MEDS: DAPAGLIFLOZIN 10 MG TABLET PO SCH (09:05)
[2022-10-01] MEDS: ISOSORBIDE MONONITRATE 30 MG TABLET PO SCH (09:05)
[2022-10-01] MEDS: SPIRONOLACTONE 50 MG TABLET PO SCH (09:05)
[2022-10-01] MEDS: CYANOCOBALAMIN 500 MCG TABLET PO SCH (09:06)
[2022-10-01] MEDS: HYDROXYCHLOROQUINE 200 MG TABLET PO SCH (09:06)
[2022-10-01] MEDS: allopurinoL 300 MG TABLET PO SCH (09:06)
[2022-10-01] MEDS: NYSTATIN 500,000 UNIT/5 ML UDCUP SWISH/SWAL SCH ×4 (09:06→20:22)
[2022-10-01] MEDS: POTASSIUM CHLORIDE 20 MEQ TABLET PO SCH (09:06)
[2022-10-01] MEDS: CHLORHEXIDINE 0.12% ORAL RINSE 60 ML BOTTLE SWISH/SPIT SCH ×2 (09:07→20:22)
[2022-10-01] MEDS: TOBRAMYCIN/DEXAMETHASONE 0.3%-0.1% OPH SUSP 2.5 ML BOTTLE LEFT EYE SCH ×4 (09:07→20:22)
[2022-10-01] MEDS: ONDANSETRON 4 MG/2 ML VIAL IV PRN ×2 (09:18→14:29)
[2022-10-01] MEDS ORDERED: NITROGLYCERIN 2% OINT 1 INCH/GM PACK TOP SCH (09:58)
[2022-10-01] MEDS ORDERED: SODIUM PHOSPHATE ENEMA 133 ML BOTTLE RECTAL PRN (14:04)
[2022-10-01 15:32] LABS: Calcium 9.1 MG/DL (8.5-10.1); Osmolality,Calculated 286.8 MOS/KG (273-304); Potassium 3.7 MMOL/L (3.5-5.1)
[2022-10-01] MEDS: PROMETHAZINE 25 MG/1 ML VIAL IM PRN (16:45)
[2022-10-01] MEDS: DOBUTamine 500 MG/250 ML PREMIX IV SCH (20:22)
[2022-10-01] MEDS: ASPIRIN CHEW 81 MG TABLET PO SCH (20:22)
[2022-10-02] MEDS: ALBUTEROL 2.5 MG/3 ML NEB RESP TX SCH ×4 (00:32→19:20)
[2022-10-02] MEDS: BRIMONIDINE 0.1% OPH SOLN 5 ML BOTTLE BOTH EYES SCH ×3 (05:33→21:00)
[2022-10-02 05:34] LABS: Basophils % 0.1 % (0.0-0.8); Eosinophils # 0.5 10*3/uL (0.0-0.87); Eosinophils % 6.1 % (0.00-10.9); Hemoglobin 9.8 GM/DL (12.0-16.0); Immature Granulocytes Absolute 0.08 #; Mean Corpuscular HGB Conc 33.8 GM/DL (32-36); Mean Platelet Volume 10.9 FL (9.6-12.0); Monocytes # 0.9 10*3/uL (0.11-0.8); Monocytes % 11.4 % (1.7-12.7); Neutrophils % 69.4 % (38.7-73.9); Platelet Count 175 T/CUMM (130-400); Red Blood Count 3.26 MC/CUMM (3.8-5.5); Red Cell Distribution Width 14.8 % (9.3-17.3); White Blood Count 8.23 T/CUMM (4-12)
[2022-10-02 05:58] LABS: Albumin 2.7 G/DL (3.4-5.0); Bilirubin,Total 1.2 MG/DL (0.20-1.00); Calcium 9.4 MG/DL (8.5-10.1); Osmolality,Calculated 275.1 MOS/KG (273-304); Potassium 3.6 MMOL/L (3.5-5.1); Total Protein 6.2 G/DL (6.4-8.2)
[2022-10-02] MEDS: SPIRONOLACTONE 50 MG TABLET PO SCH (10:11)
[2022-10-02] MEDS: MULTIVITAMIN (CENTRUM) TABLET PO SCH (10:11)
[2022-10-02] MEDS: DOCUSATE SODIUM 100 MG CAPSULE PO SCH ×2 (10:11→20:31)
[2022-10-02] MEDS: DAPAGLIFLOZIN 10 MG TABLET PO SCH (10:12)
[2022-10-02] MEDS: ISOSORBIDE MONONITRATE 30 MG TABLET PO SCH (10:12)
[2022-10-02] MEDS: FUROSEMIDE 40 MG/4 ML VIAL IV SCH (10:12)
[2022-10-02] MEDS: POTASSIUM CHLORIDE 20 MEQ TABLET PO SCH (10:12)
[2022-10-02] MEDS: NITROGLYCERIN 2% OINT 1 INCH/GM PACK TOP SCH (10:13)
[2022-10-02] MEDS: CHLORHEXIDINE 0.12% ORAL RINSE 60 ML BOTTLE SWISH/SPIT SCH ×2 (10:13→20:31)
[2022-10-02] MEDS: NYSTATIN 500,000 UNIT/5 ML UDCUP SWISH/SWAL SCH ×4 (10:13→20:31)
[2022-10-02] MEDS: POLYETHYLENE GLYCOL POWDER 17 GM PACK PO SCH (10:13)
[2022-10-02] MEDS: CYANOCOBALAMIN 500 MCG TABLET PO SCH (10:14)
[2022-10-02] MEDS: PILOCARPINE 5 MG TABLET PO SCH (10:14)
[2022-10-02] MEDS: HYDROXYCHLOROQUINE 200 MG TABLET PO SCH (10:14)
[2022-10-02] MEDS: PANTOPRAZOLE 40 MG TABLET PO SCH (10:14)
[2022-10-02] MEDS: NABUMETONE 500 MG TABLET PO SCH ×2 (10:14→20:31)
[2022-10-02] MEDS: TOBRAMYCIN/DEXAMETHASONE 0.3%-0.1% OPH SUSP 2.5 ML BOTTLE LEFT EYE SCH ×4 (10:14→20:32)
[2022-10-02] MEDS: ASCORBIC ACID 500 MG TABLET PO SCH (10:15)
[2022-10-02] MEDS: allopurinoL 300 MG TABLET PO SCH (10:15)
[2022-10-02] MEDS: INSULIN REGULAR 100 UNIT/ML SUBCUT SCH ×4 (11:51→20:00)
[2022-10-02] MEDS: ONDANSETRON 4 MG/2 ML VIAL IV PRN ×2 (11:53→21:00)
[2022-10-02] MEDS: MORPHINE 2 MG/1 ML SYRINGE IV PRN ×2 (12:38→20:34)
[2022-10-02] MEDS ORDERED: FUROSEMIDE 40 MG/4 ML VIAL IV ONE ×2 (16:00)
[2022-10-02] MEDS: DOBUTamine 500 MG/250 ML PREMIX IV SCH (17:58)
[2022-10-02] MEDS: ASPIRIN CHEW 81 MG TABLET PO SCH (20:31)
[2022-10-03] MEDS: ALBUTEROL 2.5 MG/3 ML NEB RESP TX SCH ×4 (01:16→19:26)
[2022-10-03 04:36] LABS: Arterial Base Excess iSTAT 3 MMOL/L (-2.5-2.5); Arterial Bicarbonate iSTAT 27.3 MMOL/L (20-26); Arterial O2 Saturation iSTAT 95 % (95-100); Arterial PCO2 iSTAT 38 MM HG (35-48); Arterial PO2 iSTAT 72 MM HG (80-95); Arterial Total CO2 iSTAT 28 MMO/L (23-27); Arterial pH iSTAT 7.468 (7.35-7.45)
[2022-10-03 04:49] LABS: Basophils % 0.3 % (0.0-0.8); Eosinophils % 8.5 % (0.00-10.9); Hematocrit 31.5 VOL% (35.7-47.0); Hemoglobin 10.2 GM/DL (12.0-16.0); Immature Granulocytes % 1.2 %; Immature Granulocytes Absolute 0.14 #; Lymphocytes # 1.5 10*3/uL (1.4-4.0); Lymphocytes % 12.4 % (21.3-54.2); Mean Corpuscular HGB Conc 32.4 GM/DL (32-36); Mean Corpuscular Volume 92.4 FL (87-102); Mean Platelet Volume 10.7 FL (9.6-12.0); Monocytes # 1.4 10*3/uL (0.11-0.8); Monocytes % 11.7 % (1.7-12.7); Neutrophils % 65.9 % (38.7-73.9); Platelet Count 207 T/CUMM (130-400); Red Blood Count 3.41 MC/CUMM (3.8-5.5); Red Cell Distribution Width 14.9 % (9.3-17.3)
[2022-10-03 04:59] LABS: Calcium 9.3 MG/DL (8.5-10.1); Osmolality,Calculated 273.2 MOS/KG (273-304); Potassium 3.8 MMOL/L (3.5-5.1)
[2022-10-03] MEDS: BRIMONIDINE 0.1% OPH SOLN 5 ML BOTTLE BOTH EYES SCH ×3 (05:41→21:13)
[2022-10-03] MEDS: INSULIN REGULAR 100 UNIT/ML SUBCUT SCH ×4 (07:50→21:13)
[2022-10-03 08:34] LABS: Arterial Base Excess iSTAT 2 MMOL/L (-2.5-2.5); Arterial Bicarbonate iSTAT 24.3 MMOL/L (20-26); Arterial O2 Saturation iSTAT 82 % (95-100); Arterial PCO2 iSTAT 29 MM HG (35-48); Arterial PO2 iSTAT 40 MM HG (80-95); Arterial Total CO2 iSTAT 25 MMO/L (23-27)
[2022-10-03] MEDS: NYSTATIN 500,000 UNIT/5 ML UDCUP SWISH/SWAL SCH ×4 (09:43→21:13)
[2022-10-03] MEDS: POLYETHYLENE GLYCOL POWDER 17 GM PACK PO SCH (09:43)
[2022-10-03] MEDS: ISOSORBIDE MONONITRATE 30 MG TABLET PO SCH (09:44)
[2022-10-03] MEDS: FUROSEMIDE 40 MG/4 ML VIAL IV SCH (09:45)
[2022-10-03] MEDS: ASCORBIC ACID 500 MG TABLET PO SCH (09:46)
[2022-10-03] MEDS: MULTIVITAMIN (CENTRUM) TABLET PO SCH (09:46)
[2022-10-03] MEDS: SPIRONOLACTONE 50 MG TABLET PO SCH (09:46)
[2022-10-03] MEDS: POTASSIUM CHLORIDE 20 MEQ TABLET PO SCH (09:46)
[2022-10-03] MEDS: HYDROXYCHLOROQUINE 200 MG TABLET PO SCH (09:47)
[2022-10-03] MEDS: CYANOCOBALAMIN 500 MCG TABLET PO SCH (09:47)
[2022-10-03] MEDS: PILOCARPINE 5 MG TABLET PO SCH (09:47)
[2022-10-03] MEDS: PANTOPRAZOLE 40 MG TABLET PO SCH (09:47)
[2022-10-03] MEDS: NABUMETONE 500 MG TABLET PO SCH ×2 (09:47→21:12)
[2022-10-03] MEDS: DOCUSATE SODIUM 100 MG CAPSULE PO SCH ×2 (09:47→21:13)
[2022-10-03] MEDS: DAPAGLIFLOZIN 10 MG TABLET PO SCH (09:47)
[2022-10-03] MEDS: CHLORHEXIDINE 0.12% ORAL RINSE 60 ML BOTTLE SWISH/SPIT SCH ×2 (09:49→21:13)
[2022-10-03] MEDS: NITROGLYCERIN 2% OINT 1 INCH/GM PACK TOP SCH (09:51)
[2022-10-03] MEDS: TOBRAMYCIN/DEXAMETHASONE 0.3%-0.1% OPH SUSP 2.5 ML BOTTLE LEFT EYE SCH ×4 (09:52→21:13)
[2022-10-03] MEDS: MORPHINE 2 MG/1 ML SYRINGE IV PRN (10:02)
[2022-10-03] MEDS: DOBUTamine 500 MG/250 ML PREMIX IV SCH ×2 (12:19→19:04)
[2022-10-03] MEDS ORDERED: FUROSEMIDE 40 MG/4 ML VIAL IV ONE (15:00)
[2022-10-03] MEDS: ONDANSETRON 4 MG/2 ML VIAL IV PRN (16:45)
[2022-10-03] MEDS: ASPIRIN CHEW 81 MG TABLET PO SCH (21:13)
[2022-10-04] MEDS: ALBUTEROL 2.5 MG/3 ML NEB RESP TX SCH ×4 (00:28→19:40)
[2022-10-04 05:38] LABS: Arterial Base Excess iSTAT 4 MMOL/L (-2.5-2.5); Arterial Bicarbonate iSTAT 27.6 MMOL/L (20-26); Arterial O2 Saturation iSTAT 98 % (95-100); Arterial PCO2 iSTAT 35 MM HG (35-48); Arterial PO2 iSTAT 91 MM HG (80-95); Arterial Total CO2 iSTAT 29 MMO/L (23-27); Arterial pH iSTAT 7.501 (7.35-7.45)
[2022-10-04] MEDS: BRIMONIDINE 0.1% OPH SOLN 5 ML BOTTLE BOTH EYES SCH ×3 (05:45→21:44)
[2022-10-04 05:49] LABS: Basophils % 0.2 % (0.0-0.8); Eosinophils # 0.8 10*3/uL (0.0-0.87); Eosinophils % 6.8 % (0.00-10.9); Hemoglobin 9.3 GM/DL (12.0-16.0); Immature Granulocytes % 3.7 %; Immature Granulocytes Absolute 0.45 #; Lymphocytes # 1.3 10*3/uL (1.4-4.0); Lymphocytes % 10.9 % (21.3-54.2); Mean Corpuscular HGB Conc 33.2 GM/DL (32-36); Mean Corpuscular Volume 90.9 FL (87-102); Mean Platelet Volume 10.6 FL (9.6-12.0); Monocytes # 1.2 10*3/uL (0.11-0.8); NRBC # 0.05 10*3/uL; Neutrophils % 68.4 % (38.7-73.9); Platelet Count 205 T/CUMM (130-400); Red Blood Count 3.08 MC/CUMM (3.8-5.5); Red Cell Distribution Width 15.1 % (9.3-17.3); White Blood Count 12.01 T/CUMM (4-12)
[2022-10-04 06:08] LABS: Albumin 2.7 G/DL (3.4-5.0); Bilirubin,Total 1.1 MG/DL (0.20-1.00); Calcium 8.9 MG/DL (8.5-10.1); Osmolality,Calculated 269.4 MOS/KG (273-304); Total Protein 6.1 G/DL (6.4-8.2)
[2022-10-04] MEDS: POLYETHYLENE GLYCOL POWDER 17 GM PACK PO SCH (08:47)
[2022-10-04] MEDS: PANTOPRAZOLE 40 MG TABLET PO SCH (08:48)
[2022-10-04] MEDS: SPIRONOLACTONE 50 MG TABLET PO SCH (08:48)
[2022-10-04] MEDS: DOCUSATE SODIUM 100 MG CAPSULE PO SCH ×2 (08:48→20:40)
[2022-10-04] MEDS: ISOSORBIDE MONONITRATE 30 MG TABLET PO SCH (08:48)
[2022-10-04] MEDS: CYANOCOBALAMIN 500 MCG TABLET PO SCH (08:48)
[2022-10-04] MEDS: MULTIVITAMIN (CENTRUM) TABLET PO SCH (08:48)
[2022-10-04] MEDS: DAPAGLIFLOZIN 10 MG TABLET PO SCH (08:48)
[2022-10-04] MEDS: FUROSEMIDE 40 MG/4 ML VIAL IV SCH (08:49)
[2022-10-04] MEDS: PILOCARPINE 5 MG TABLET PO SCH (08:49)
[2022-10-04] MEDS: NABUMETONE 500 MG TABLET PO SCH ×2 (08:49→20:40)
[2022-10-04] MEDS: NYSTATIN 500,000 UNIT/5 ML UDCUP SWISH/SWAL SCH (08:49)
[2022-10-04] MEDS: POTASSIUM CHLORIDE 20 MEQ TABLET PO SCH (08:49)
[2022-10-04] MEDS: HYDROXYCHLOROQUINE 200 MG TABLET PO SCH (08:49)
[2022-10-04] MEDS: ASCORBIC ACID 500 MG TABLET PO SCH (08:49)
[2022-10-04] MEDS: INSULIN REGULAR 100 UNIT/ML SUBCUT SCH ×4 (08:50→20:41)
[2022-10-04] MEDS: TOBRAMYCIN/DEXAMETHASONE 0.3%-0.1% OPH SUSP 2.5 ML BOTTLE LEFT EYE SCH ×4 (08:51→20:41)
[2022-10-04] MEDS: CHLORHEXIDINE 0.12% ORAL RINSE 60 ML BOTTLE SWISH/SPIT SCH ×2 (08:51→20:41)
[2022-10-04] MEDS: NITROGLYCERIN 2% OINT 1 INCH/GM PACK TOP SCH (08:53)
[2022-10-04] MEDS: ASPIRIN CHEW 81 MG TABLET PO SCH (20:41)
[2022-10-04] MEDS: DOBUTamine 500 MG/250 ML PREMIX IV SCH (21:44)
[2022-10-05] MEDS: DOBUTamine 500 MG/250 ML PREMIX IV SCH ×2 (01:12→16:47)
[2022-10-05] MEDS: ALBUTEROL 2.5 MG/3 ML NEB RESP TX SCH ×4 (01:22→19:26)
[2022-10-05 04:50] LABS: Arterial Base Excess iSTAT 4 MMOL/L (-2.5-2.5); Arterial Bicarbonate iSTAT 26.4 MMOL/L (20-26); Arterial O2 Saturation iSTAT 98 % (95-100); Arterial PCO2 iSTAT 33 MM HG (35-48); Arterial PO2 iSTAT 87 MM HG (80-95); Arterial Total CO2 iSTAT 27 MMO/L (23-27); Arterial pH iSTAT 7.511 (7.35-7.45)
[2022-10-05 05:20] LABS: Basophils % 0.3 % (0.0-0.8); Eosinophils # 0.8 10*3/uL (0.0-0.87); Eosinophils % 6.9 % (0.00-10.9); Hematocrit 28.6 VOL% (35.7-47.0); Hemoglobin 9.9 GM/DL (12.0-16.0); Immature Granulocytes Absolute 0.23 #; Lymphocytes # 1.5 10*3/uL (1.4-4.0); Mean Corpuscular HGB Conc 34.6 GM/DL (32-36); Mean Corpuscular Volume 89.1 FL (87-102); Mean Platelet Volume 10.3 FL (9.6-12.0); Monocytes % 8.8 % (1.7-12.7); NRBC # 0.04 10*3/uL; Platelet Count 216 T/CUMM (130-400); Red Blood Count 3.21 MC/CUMM (3.8-5.5); White Blood Count 11.23 T/CUMM (4-12)
[2022-10-05 05:33] LABS: INR 1.2; PT Patient Result 12.9 SECS (10.1-12.1)
[2022-10-05 05:44] LABS: Albumin 2.7 G/DL (3.4-5.0); Bilirubin,Total 1.1 MG/DL (0.20-1.00); Calcium 8.7 MG/DL (8.5-10.1); Osmolality,Calculated 268.5 MOS/KG (273-304)
[2022-10-05] MEDS: BRIMONIDINE 0.1% OPH SOLN 5 ML BOTTLE BOTH EYES SCH ×3 (06:31→21:16)
[2022-10-05] MEDS: INSULIN REGULAR 100 UNIT/ML SUBCUT SCH ×4 (09:11→21:18)
[2022-10-05] MEDS: POLYETHYLENE GLYCOL POWDER 17 GM PACK PO SCH (09:11)
[2022-10-05] MEDS: CYANOCOBALAMIN 500 MCG TABLET PO SCH (09:12)
[2022-10-05] MEDS: MULTIVITAMIN (CENTRUM) TABLET PO SCH (09:12)
[2022-10-05] MEDS: ISOSORBIDE MONONITRATE 30 MG TABLET PO SCH (09:12)
[2022-10-05] MEDS: POTASSIUM CHLORIDE 20 MEQ TABLET PO SCH (09:12)
[2022-10-05] MEDS: FUROSEMIDE 40 MG/4 ML VIAL IV SCH (09:12)
[2022-10-05] MEDS: DAPAGLIFLOZIN 10 MG TABLET PO SCH (09:12)
[2022-10-05] MEDS: PILOCARPINE 5 MG TABLET PO SCH (09:12)
[2022-10-05] MEDS: DOCUSATE SODIUM 100 MG CAPSULE PO SCH ×2 (09:12→21:17)
[2022-10-05] MEDS: SPIRONOLACTONE 50 MG TABLET PO SCH (09:12)
[2022-10-05] MEDS: ASCORBIC ACID 500 MG TABLET PO SCH (09:12)
[2022-10-05] MEDS: NITROGLYCERIN 2% OINT 1 INCH/GM PACK TOP SCH (09:13)
[2022-10-05] MEDS: TOBRAMYCIN/DEXAMETHASONE 0.3%-0.1% OPH SUSP 2.5 ML BOTTLE LEFT EYE SCH ×4 (09:13→21:17)
[2022-10-05] MEDS: PANTOPRAZOLE 40 MG TABLET PO SCH (09:13)
[2022-10-05] MEDS: CHLORHEXIDINE 0.12% ORAL RINSE 60 ML BOTTLE SWISH/SPIT SCH ×2 (09:13→21:17)
[2022-10-05] MEDS: HYDROXYCHLOROQUINE 200 MG TABLET PO SCH (09:13)
[2022-10-05] MEDS: NABUMETONE 500 MG TABLET PO SCH ×2 (09:13→21:18)
[2022-10-05] MEDS: ONDANSETRON 4 MG/2 ML VIAL IV PRN (10:50)
[2022-10-05 17:28] LABS: Lymphocytes,Pleural Fluid 78 %; Monocytes,Pleural Fluid 3 %; Neutrophils,Pleural Fluid 19 %
[2022-10-05] MEDS: ASPIRIN CHEW 81 MG TABLET PO SCH (21:17)
[2022-10-05 22:06] LABS: Amylase,Body Fluid 10 U/L; Glucose,Pleural Fluid 240 MG/DL; LDH,Body Fluid 137 U/L; Total Protein,Body Fluid < 2.0 G/DL; Triglycerides,Body Fluid < 15 MG/DL
[2022-10-06] MEDS: ALBUTEROL 2.5 MG/3 ML NEB RESP TX SCH ×4 (00:13→19:19)
[2022-10-06 05:36] LABS: Basophils % 0.4 % (0.0-0.8); Eosinophils # 0.5 10*3/uL (0.0-0.87); Eosinophils % 5.9 % (0.00-10.9); Hematocrit 28.4 VOL% (35.7-47.0); Hemoglobin 9.5 GM/DL (12.0-16.0); Immature Granulocytes Absolute 0.18 #; Lymphocytes # 1.4 10*3/uL (1.4-4.0); Lymphocytes % 15.5 % (21.3-54.2); Mean Corpuscular HGB Conc 33.5 GM/DL (32-36); Mean Corpuscular Volume 89.9 FL (87-102); Mean Platelet Volume 10.3 FL (9.6-12.0); Monocytes # 0.8 10*3/uL (0.11-0.8); Monocytes % 8.3 % (1.7-12.7); Neutrophils % 67.9 % (38.7-73.9); Platelet Count 241 T/CUMM (130-400); Red Blood Count 3.16 MC/CUMM (3.8-5.5); Red Cell Distribution Width 15.3 % (9.3-17.3); White Blood Count 9.03 T/CUMM (4-12)
[2022-10-06] MEDS: BRIMONIDINE 0.1% OPH SOLN 5 ML BOTTLE BOTH EYES SCH ×3 (05:43→21:00)
[2022-10-06 06:09] LABS: Osmolality,Calculated 267.5 MOS/KG (273-304)
[2022-10-06] MEDS: INSULIN REGULAR 100 UNIT/ML SUBCUT SCH ×4 (07:59→21:01)
[2022-10-06] MEDS: POLYETHYLENE GLYCOL POWDER 17 GM PACK PO SCH (09:11)
[2022-10-06] MEDS: DAPAGLIFLOZIN 10 MG TABLET PO SCH (09:11)
[2022-10-06] MEDS: POTASSIUM CHLORIDE 20 MEQ TABLET PO SCH (09:11)
[2022-10-06] MEDS: FUROSEMIDE 40 MG/4 ML VIAL IV SCH (09:11)
[2022-10-06] MEDS: ASCORBIC ACID 500 MG TABLET PO SCH (09:11)
[2022-10-06] MEDS: NABUMETONE 500 MG TABLET PO SCH ×2 (09:11→20:58)
[2022-10-06] MEDS: ISOSORBIDE MONONITRATE 30 MG TABLET PO SCH (09:11)
[2022-10-06] MEDS: MULTIVITAMIN (CENTRUM) TABLET PO SCH (09:12)
[2022-10-06] MEDS: PANTOPRAZOLE 40 MG TABLET PO SCH (09:12)
[2022-10-06] MEDS: TOBRAMYCIN/DEXAMETHASONE 0.3%-0.1% OPH SUSP 2.5 ML BOTTLE LEFT EYE SCH ×4 (09:12→20:56)
[2022-10-06] MEDS: SPIRONOLACTONE 50 MG TABLET PO SCH (09:12)
[2022-10-06] MEDS: HYDROXYCHLOROQUINE 200 MG TABLET PO SCH (09:12)
[2022-10-06] MEDS: CHLORHEXIDINE 0.12% ORAL RINSE 60 ML BOTTLE SWISH/SPIT SCH ×2 (09:12→20:56)
[2022-10-06] MEDS: NITROGLYCERIN 2% OINT 1 INCH/GM PACK TOP SCH (09:12)
[2022-10-06] MEDS: PILOCARPINE 5 MG TABLET PO SCH (09:12)
[2022-10-06] MEDS: CYANOCOBALAMIN 500 MCG TABLET PO SCH (09:12)
[2022-10-06] MEDS: DOCUSATE SODIUM 100 MG CAPSULE PO SCH ×2 (09:12→20:58)
[2022-10-06] MEDS: TOLVAPTAN 15 MG TABLET PO SCH (10:35)
[2022-10-06] MEDS: DOBUTamine 500 MG/250 ML PREMIX IV SCH (16:02)
[2022-10-06] MEDS ORDERED: ENOXAPARIN 80 MG/0.8 ML SYRINGE SUBCUT ONE (17:00)
[2022-10-06] MEDS: ASPIRIN CHEW 81 MG TABLET PO SCH (20:58)
[2022-10-07] MEDS: ALBUTEROL 2.5 MG/3 ML NEB RESP TX SCH ×4 (00:01→19:36)
[2022-10-07] MEDS: DOBUTamine 500 MG/250 ML PREMIX IV SCH ×2 (02:07→20:36)
[2022-10-07 05:53] LABS: Basophils % 0.4 % (0.0-0.8); Eosinophils # 0.4 10*3/uL (0.0-0.87); Eosinophils % 4.9 % (0.00-10.9); Hematocrit 30.3 VOL% (35.7-47.0); Hemoglobin 9.8 GM/DL (12.0-16.0); Immature Granulocytes % 1.5 %; Immature Granulocytes Absolute 0.12 #; Lymphocytes # 1.3 10*3/uL (1.4-4.0); Lymphocytes % 16.6 % (21.3-54.2); Mean Corpuscular HGB Conc 32.3 GM/DL (32-36); Mean Platelet Volume 10.1 FL (9.6-12.0); Monocytes # 0.8 10*3/uL (0.11-0.8); Monocytes % 10.3 % (1.7-12.7); Neutrophils % 66.3 % (38.7-73.9); Platelet Count 257 T/CUMM (130-400); Red Blood Count 3.33 MC/CUMM (3.8-5.5); Red Cell Distribution Width 15.9 % (9.3-17.3); White Blood Count 7.89 T/CUMM (4-12)
[2022-10-07 06:14] LABS: Calcium 8.9 MG/DL (8.5-10.1); Osmolality,Calculated 268.9 MOS/KG (273-304); Potassium 3.7 MMOL/L (3.5-5.1)
[2022-10-07] MEDS ORDERED: ceFAZolin 1,000 MG VIAL ONE ×2 (06:45)
[2022-10-07] MEDS ORDERED: LIDOCAINE 1%/EPI INJ 20 ML VIAL ONE (06:45)
[2022-10-07] MEDS ORDERED: TISSUE ADHESIVE 1 EACH APPLICATOR TOP ONE (06:45)
[2022-10-07] MEDS: BRIMONIDINE 0.1% OPH SOLN 5 ML BOTTLE BOTH EYES SCH ×3 (06:52→22:41)
[2022-10-07] MEDS: SODIUM CHLORIDE 0.9% 1,000 ML IV SCH ×2 (06:52→10:47)
[2022-10-07] MEDS: INSULIN REGULAR 100 UNIT/ML SUBCUT SCH ×4 (07:57→20:37)
[2022-10-07] MEDS: FUROSEMIDE 40 MG/4 ML VIAL IV SCH (08:49)
[2022-10-07] MEDS ORDERED: ceFAZolin 1,000 MG VIAL IRRIG ONE (09:00)
[2022-10-07] MEDS: DOCUSATE SODIUM 100 MG CAPSULE PO SCH ×2 (10:43→20:37)
[2022-10-07] MEDS: MULTIVITAMIN (CENTRUM) TABLET PO SCH (10:43)
[2022-10-07] MEDS: SPIRONOLACTONE 50 MG TABLET PO SCH (10:43)
[2022-10-07] MEDS: ISOSORBIDE MONONITRATE 30 MG TABLET PO SCH (10:44)
[2022-10-07] MEDS: POLYETHYLENE GLYCOL POWDER 17 GM PACK PO SCH (10:44)
[2022-10-07] MEDS: DAPAGLIFLOZIN 10 MG TABLET PO SCH (10:44)
[2022-10-07] MEDS: POTASSIUM CHLORIDE 20 MEQ TABLET PO SCH (10:44)
[2022-10-07] MEDS: HYDROXYCHLOROQUINE 200 MG TABLET PO SCH (10:45)
[2022-10-07] MEDS: NITROGLYCERIN 2% OINT 1 INCH/GM PACK TOP SCH (10:45)
[2022-10-07] MEDS: PANTOPRAZOLE 40 MG TABLET PO SCH (10:45)
[2022-10-07] MEDS: CHLORHEXIDINE 0.12% ORAL RINSE 60 ML BOTTLE SWISH/SPIT SCH ×2 (10:45→20:37)
[2022-10-07] MEDS: NABUMETONE 500 MG TABLET PO SCH ×2 (10:46→20:37)
[2022-10-07] MEDS: CYANOCOBALAMIN 500 MCG TABLET PO SCH (10:46)
[2022-10-07] MEDS: ASCORBIC ACID 500 MG TABLET PO SCH (10:46)
[2022-10-07] MEDS: TOBRAMYCIN/DEXAMETHASONE 0.3%-0.1% OPH SUSP 2.5 ML BOTTLE LEFT EYE SCH ×4 (10:46→20:37)
[2022-10-07] MEDS: PILOCARPINE 5 MG TABLET PO SCH (10:46)
[2022-10-07] MEDS: TOLVAPTAN 15 MG TABLET PO SCH (10:46)
[2022-10-07] MEDS ORDERED: fentaNYL 100 MCG/2 ML VIAL ONE (12:07)
[2022-10-07] MEDS ORDERED: LIDOCAINE 2% 5 ML VIAL ONE (12:07)
[2022-10-07] MEDS ORDERED: MIDAZOLAM 2 MG/2 ML VIAL ONE (12:07)
[2022-10-07] MEDS ORDERED: propofoL 200 MG/20 ML VIAL IV ONE (12:07)
[2022-10-07] MEDS ORDERED: KETAMINE 500 MG/10 ML VIAL ONE (12:07)
[2022-10-07] MEDS: ASPIRIN CHEW 81 MG TABLET PO SCH (20:36)
[2022-10-07] MEDS: APIXABAN 2.5 MG TABLET PO SCH (20:37)
[2022-10-08] MEDS: ALBUTEROL 2.5 MG/3 ML NEB RESP TX SCH ×4 (00:35→19:52)
[2022-10-08] MEDS: SODIUM CHLORIDE 0.9% 1,000 ML IV SCH ×2 (03:12→09:04)
[2022-10-08 06:00] LABS: Basophils % 0.2 % (0.0-0.8); Eosinophils # 0.4 10*3/uL (0.0-0.87); Hematocrit 29.4 VOL% (35.7-47.0); Hemoglobin 9.6 GM/DL (12.0-16.0); Immature Granulocytes % 0.8 %; Immature Granulocytes Absolute 0.08 #; Lymphocytes # 1.2 10*3/uL (1.4-4.0); Lymphocytes % 11.5 % (21.3-54.2); Mean Corpuscular HGB Conc 32.7 GM/DL (32-36); Mean Corpuscular Volume 92.5 FL (87-102); Mean Platelet Volume 9.8 FL (9.6-12.0); Monocytes % 9.7 % (1.7-12.7); Neutrophils % 73.8 % (38.7-73.9); Platelet Count 227 T/CUMM (130-400); Red Blood Count 3.18 MC/CUMM (3.8-5.5); Red Cell Distribution Width 15.9 % (9.3-17.3); White Blood Count 10.17 T/CUMM (4-12)
[2022-10-08 06:17] LABS: Calcium 8.6 MG/DL (8.5-10.1); Osmolality,Calculated 267.7 MOS/KG (273-304); Potassium 3.5 MMOL/L (3.5-5.1)
[2022-10-08 06:35] LABS: Albumin 2.4 G/DL (3.4-5.0); Bilirubin,Direct 0.23 MG/DL (0.0-0.20); Bilirubin,Indirect 0.7 MG/DL (0.0-1.0); Bilirubin,Total 0.9 MG/DL (0.20-1.00); Total Protein 5.6 G/DL (6.4-8.2)
[2022-10-08] MEDS: BRIMONIDINE 0.1% OPH SOLN 5 ML BOTTLE BOTH EYES SCH ×3 (06:35→21:12)
[2022-10-08] MEDS: INSULIN REGULAR 100 UNIT/ML SUBCUT SCH ×4 (08:05→20:39)
[2022-10-08] MEDS: FUROSEMIDE 40 MG/4 ML VIAL IV SCH (09:56)
[2022-10-08] MEDS: ASCORBIC ACID 500 MG TABLET PO SCH (09:56)
[2022-10-08] MEDS: DAPAGLIFLOZIN 10 MG TABLET PO SCH (09:56)
[2022-10-08] MEDS: HYDROXYCHLOROQUINE 200 MG TABLET PO SCH (09:56)
[2022-10-08] MEDS: CYANOCOBALAMIN 500 MCG TABLET PO SCH (09:57)
[2022-10-08] MEDS: SPIRONOLACTONE 50 MG TABLET PO SCH (09:57)
[2022-10-08] MEDS: TOLVAPTAN 15 MG TABLET PO SCH (09:57)
[2022-10-08] MEDS: ISOSORBIDE MONONITRATE 30 MG TABLET PO SCH (09:57)
[2022-10-08] MEDS: DOCUSATE SODIUM 100 MG CAPSULE PO SCH ×2 (09:58→20:39)
[2022-10-08] MEDS: MULTIVITAMIN (CENTRUM) TABLET PO SCH (09:58)
[2022-10-08] MEDS: POTASSIUM CHLORIDE 20 MEQ TABLET PO SCH (09:58)
[2022-10-08] MEDS: APIXABAN 2.5 MG TABLET PO SCH ×2 (09:58→20:39)
[2022-10-08] MEDS: PILOCARPINE 5 MG TABLET PO SCH (09:58)
[2022-10-08] MEDS: PANTOPRAZOLE 40 MG TABLET PO SCH (09:58)
[2022-10-08] MEDS: NABUMETONE 500 MG TABLET PO SCH ×2 (09:58→20:40)
[2022-10-08] MEDS: POLYETHYLENE GLYCOL POWDER 17 GM PACK PO SCH (09:59)
[2022-10-08] MEDS: CHLORHEXIDINE 0.12% ORAL RINSE 60 ML BOTTLE SWISH/SPIT SCH ×2 (10:05→20:39)
[2022-10-08] MEDS: NITROGLYCERIN 2% OINT 1 INCH/GM PACK TOP SCH (10:05)
[2022-10-08] MEDS: TOBRAMYCIN/DEXAMETHASONE 0.3%-0.1% OPH SUSP 2.5 ML BOTTLE LEFT EYE SCH ×4 (10:05→20:40)
[2022-10-08] MEDS ORDERED: POTASSIUM CHLORIDE 20 MEQ TABLET PO ONE (10:31)
[2022-10-08] MEDS ORDERED: FUROSEMIDE 40 MG/4 ML VIAL IV ONE (11:17)
[2022-10-08] MEDS: ASPIRIN CHEW 81 MG TABLET PO SCH (20:39)
[2022-10-09] MEDS: ALBUTEROL 2.5 MG/3 ML NEB RESP TX SCH ×4 (01:40→20:18)
[2022-10-09] MEDS: BRIMONIDINE 0.1% OPH SOLN 5 ML BOTTLE BOTH EYES SCH ×3 (05:40→21:34)
[2022-10-09 05:45] LABS: Basophils % 0.4 % (0.0-0.8); Eosinophils # 0.5 10*3/uL (0.0-0.87); Eosinophils % 5.3 % (0.00-10.9); Hematocrit 30.1 VOL% (35.7-47.0); Hemoglobin 9.7 GM/DL (12.0-16.0); Immature Granulocytes % 0.9 %; Immature Granulocytes Absolute 0.09 #; Lymphocytes # 1.5 10*3/uL (1.4-4.0); Lymphocytes % 15.1 % (21.3-54.2); Mean Corpuscular HGB Conc 32.2 GM/DL (32-36); Mean Corpuscular Volume 93.2 FL (87-102); Mean Platelet Volume 9.7 FL (9.6-12.0); Monocytes % 9.9 % (1.7-12.7); NRBC # 0.02 10*3/uL; Neutrophils % 68.4 % (38.7-73.9); Platelet Count 230 T/CUMM (130-400); Red Blood Count 3.23 MC/CUMM (3.8-5.5)
[2022-10-09 06:00] LABS: Calcium 8.8 MG/DL (8.5-10.1); Osmolality,Calculated 269.7 MOS/KG (273-304)
[2022-10-09] MEDS: INSULIN REGULAR 100 UNIT/ML SUBCUT SCH ×4 (08:17→20:32)
[2022-10-09] MEDS: SODIUM CHLORIDE 0.9% 1,000 ML IV SCH ×2 (09:01→09:02)
[2022-10-09] MEDS: NITROGLYCERIN 2% OINT 1 INCH/GM PACK TOP SCH (09:39)
[2022-10-09] MEDS: FUROSEMIDE 40 MG/4 ML VIAL IV SCH (09:39)
[2022-10-09] MEDS: POLYETHYLENE GLYCOL POWDER 17 GM PACK PO SCH (09:39)
[2022-10-09] MEDS: APIXABAN 2.5 MG TABLET PO SCH ×2 (09:40→20:31)
[2022-10-09] MEDS: TOLVAPTAN 15 MG TABLET PO SCH (09:40)
[2022-10-09] MEDS: SPIRONOLACTONE 50 MG TABLET PO SCH (09:40)
[2022-10-09] MEDS: PILOCARPINE 5 MG TABLET PO SCH (09:40)
[2022-10-09] MEDS: ISOSORBIDE MONONITRATE 30 MG TABLET PO SCH (09:40)
[2022-10-09] MEDS: HYDROXYCHLOROQUINE 200 MG TABLET PO SCH (09:40)
[2022-10-09] MEDS: PANTOPRAZOLE 40 MG TABLET PO SCH (09:40)
[2022-10-09] MEDS: DAPAGLIFLOZIN 10 MG TABLET PO SCH (09:40)
[2022-10-09] MEDS: MULTIVITAMIN (CENTRUM) TABLET PO SCH (09:40)
[2022-10-09] MEDS: NABUMETONE 500 MG TABLET PO SCH ×2 (09:40→20:31)
[2022-10-09] MEDS: DOCUSATE SODIUM 100 MG CAPSULE PO SCH ×2 (09:40→20:47)
[2022-10-09] MEDS: POTASSIUM CHLORIDE 20 MEQ TABLET PO SCH (09:40)
[2022-10-09] MEDS: ASCORBIC ACID 500 MG TABLET PO SCH (09:40)
[2022-10-09] MEDS: CYANOCOBALAMIN 500 MCG TABLET PO SCH (09:40)
[2022-10-09] MEDS: TOBRAMYCIN/DEXAMETHASONE 0.3%-0.1% OPH SUSP 2.5 ML BOTTLE LEFT EYE SCH ×4 (09:42→20:33)
[2022-10-09] MEDS: CHLORHEXIDINE 0.12% ORAL RINSE 60 ML BOTTLE SWISH/SPIT SCH ×2 (09:43→20:33)
[2022-10-09] MEDS: ONDANSETRON 4 MG/2 ML VIAL IV PRN (09:48)
[2022-10-09 20:06] LABS: M. Tuberculosis PCR Result Negative (Negative); M. Tuberculosis PCR Source PLEURAL FLUID
[2022-10-09] MEDS: ASPIRIN CHEW 81 MG TABLET PO SCH (20:31)
[2022-10-09] MEDS: ROSUVASTATIN 20 MG TABLET PO SCH (20:31)
[2022-10-10] MEDS: ALBUTEROL 2.5 MG/3 ML NEB RESP TX SCH ×4 (01:38→19:38)
[2022-10-10] MEDS: BRIMONIDINE 0.1% OPH SOLN 5 ML BOTTLE BOTH EYES SCH ×3 (05:05→21:02)
[2022-10-10 05:37] LABS: Osmolality,Calculated 271.5 MOS/KG (273-304)
[2022-10-10] MEDS: MULTIVITAMIN (CENTRUM) TABLET PO SCH (09:08)
[2022-10-10] MEDS: INSULIN REGULAR 100 UNIT/ML SUBCUT SCH ×4 (09:08→20:51)
[2022-10-10] MEDS: DOCUSATE SODIUM 100 MG CAPSULE PO SCH ×2 (09:08→20:51)
[2022-10-10] MEDS: SPIRONOLACTONE 50 MG TABLET PO SCH (09:08)
[2022-10-10] MEDS: NABUMETONE 500 MG TABLET PO SCH ×2 (09:09→20:51)
[2022-10-10] MEDS: DAPAGLIFLOZIN 10 MG TABLET PO SCH (09:09)
[2022-10-10] MEDS: NITROGLYCERIN 2% OINT 1 INCH/GM PACK TOP SCH (09:09)
[2022-10-10] MEDS: PANTOPRAZOLE 40 MG TABLET PO SCH (09:09)
[2022-10-10] MEDS: POLYETHYLENE GLYCOL POWDER 17 GM PACK PO SCH (09:09)
[2022-10-10] MEDS: POTASSIUM CHLORIDE 20 MEQ TABLET PO SCH (09:09)
[2022-10-10] MEDS: HYDROXYCHLOROQUINE 200 MG TABLET PO SCH (09:09)
[2022-10-10] MEDS: APIXABAN 2.5 MG TABLET PO SCH ×2 (09:09→20:51)
[2022-10-10] MEDS: ISOSORBIDE MONONITRATE 30 MG TABLET PO SCH (09:09)
[2022-10-10] MEDS: FUROSEMIDE 80 MG TABLET PO SCH (09:09)
[2022-10-10] MEDS: CHLORHEXIDINE 0.12% ORAL RINSE 60 ML BOTTLE SWISH/SPIT SCH ×2 (09:09→20:51)
[2022-10-10] MEDS: PILOCARPINE 5 MG TABLET PO SCH (09:10)
[2022-10-10] MEDS: TOBRAMYCIN/DEXAMETHASONE 0.3%-0.1% OPH SUSP 2.5 ML BOTTLE LEFT EYE SCH ×4 (09:10→20:52)
[2022-10-10] MEDS: CYANOCOBALAMIN 500 MCG TABLET PO SCH (09:10)
[2022-10-10] MEDS: ASCORBIC ACID 500 MG TABLET PO SCH (09:10)
[2022-10-10] MEDS: TOLVAPTAN 15 MG TABLET PO SCH (09:10)
[2022-10-10] MEDS: ROSUVASTATIN 20 MG TABLET PO SCH (20:51)
[2022-10-10] MEDS: ASPIRIN CHEW 81 MG TABLET PO SCH (20:51)
[2022-10-11] MEDS: ALBUTEROL 2.5 MG/3 ML NEB RESP TX SCH ×4 (02:07→19:30)
[2022-10-11] MEDS: BRIMONIDINE 0.1% OPH SOLN 5 ML BOTTLE BOTH EYES SCH ×3 (05:01→21:05)
[2022-10-11 05:40] LABS: Basophils # 0.1 10*3/uL (0.0-0.2); Basophils % 0.5 % (0.0-0.8); Eosinophils # 0.4 10*3/uL (0.0-0.87); Eosinophils % 3.9 % (0.00-10.9); Hematocrit 29.3 VOL% (35.7-47.0); Hemoglobin 9.5 GM/DL (12.0-16.0); Immature Granulocytes % 0.7 %; Immature Granulocytes Absolute 0.08 #; Lymphocytes # 1.3 10*3/uL (1.4-4.0); Lymphocytes % 12.3 % (21.3-54.2); Mean Corpuscular HGB Conc 32.4 GM/DL (32-36); Mean Corpuscular Volume 92.7 FL (87-102); Mean Platelet Volume 9.6 FL (9.6-12.0); Monocytes # 0.8 10*3/uL (0.11-0.8); Monocytes % 7.7 % (1.7-12.7); Neutrophils % 74.9 % (38.7-73.9); Platelet Count 182 T/CUMM (130-400); Red Blood Count 3.16 MC/CUMM (3.8-5.5); Red Cell Distribution Width 16.4 % (9.3-17.3); White Blood Count 10.86 T/CUMM (4-12)
[2022-10-11 05:54] LABS: Calcium 8.7 MG/DL (8.5-10.1); Osmolality,Calculated 277.2 MOS/KG (273-304); Potassium 3.6 MMOL/L (3.5-5.1)
[2022-10-11] MEDS: INSULIN REGULAR 100 UNIT/ML SUBCUT SCH ×4 (07:50→20:39)
[2022-10-11] MEDS: ISOSORBIDE MONONITRATE 30 MG TABLET PO SCH (09:07)
[2022-10-11] MEDS: POLYETHYLENE GLYCOL POWDER 17 GM PACK PO SCH (09:07)
[2022-10-11] MEDS: NABUMETONE 500 MG TABLET PO SCH ×2 (09:07→20:40)
[2022-10-11] MEDS: HYDROXYCHLOROQUINE 200 MG TABLET PO SCH (09:07)
[2022-10-11] MEDS: SPIRONOLACTONE 50 MG TABLET PO SCH (09:07)
[2022-10-11] MEDS: NITROGLYCERIN 2% OINT 1 INCH/GM PACK TOP SCH (09:07)
[2022-10-11] MEDS: TOLVAPTAN 15 MG TABLET PO SCH (09:08)
[2022-10-11] MEDS: PANTOPRAZOLE 40 MG TABLET PO SCH (09:08)
[2022-10-11] MEDS: APIXABAN 2.5 MG TABLET PO SCH ×2 (09:08→20:40)
[2022-10-11] MEDS: POTASSIUM CHLORIDE 20 MEQ TABLET PO SCH (09:08)
[2022-10-11] MEDS: PILOCARPINE 5 MG TABLET PO SCH (09:08)
[2022-10-11] MEDS: MULTIVITAMIN (CENTRUM) TABLET PO SCH (09:08)
[2022-10-11] MEDS: DAPAGLIFLOZIN 10 MG TABLET PO SCH (09:08)
[2022-10-11] MEDS: CYANOCOBALAMIN 500 MCG TABLET PO SCH (09:08)
[2022-10-11] MEDS: FUROSEMIDE 80 MG TABLET PO SCH (09:08)
[2022-10-11] MEDS: DOCUSATE SODIUM 100 MG CAPSULE PO SCH ×2 (09:08→20:40)
[2022-10-11] MEDS: ASCORBIC ACID 500 MG TABLET PO SCH (09:09)
[2022-10-11] MEDS: CHLORHEXIDINE 0.12% ORAL RINSE 60 ML BOTTLE SWISH/SPIT SCH ×2 (09:12→20:39)
[2022-10-11] MEDS: TOBRAMYCIN/DEXAMETHASONE 0.3%-0.1% OPH SUSP 2.5 ML BOTTLE LEFT EYE SCH ×4 (09:14→20:41)
[2022-10-11] MEDS: ASPIRIN CHEW 81 MG TABLET PO SCH (20:40)
[2022-10-11] MEDS: ROSUVASTATIN 20 MG TABLET PO SCH (20:40)
[2022-10-12] MEDS: ALBUTEROL 2.5 MG/3 ML NEB RESP TX SCH ×4 (00:36→19:52)
[2022-10-12 05:23] LABS: Basophils # 0.1 10*3/uL (0.0-0.2); Basophils % 0.5 % (0.0-0.8); Eosinophils # 0.5 10*3/uL (0.0-0.87); Eosinophils % 5.4 % (0.00-10.9); Hematocrit 32.5 VOL% (35.7-47.0); Hemoglobin 10.1 GM/DL (12.0-16.0); Immature Granulocytes Absolute 0.09 #; Lymphocytes # 1.6 10*3/uL (1.4-4.0); Mean Corpuscular HGB Conc 31.1 GM/DL (32-36); Mean Corpuscular Volume 93.9 FL (87-102); Mean Platelet Volume 10.2 FL (9.6-12.0); Monocytes # 0.7 10*3/uL (0.11-0.8); Monocytes % 7.9 % (1.7-12.7); NRBC # 0.02 10*3/uL; Neutrophils % 68.2 % (38.7-73.9); Platelet Count 197 T/CUMM (130-400); Red Blood Count 3.46 MC/CUMM (3.8-5.5); Red Cell Distribution Width 16.8 % (9.3-17.3); White Blood Count 9.41 T/CUMM (4-12)
[2022-10-12 05:39] LABS: Calcium 9.4 MG/DL (8.5-10.1); Osmolality,Calculated 280.8 MOS/KG (273-304); Potassium 3.4 MMOL/L (3.5-5.1)
[2022-10-12] MEDS: BRIMONIDINE 0.1% OPH SOLN 5 ML BOTTLE BOTH EYES SCH ×3 (05:55→21:47)
[2022-10-12] MEDS: INSULIN REGULAR 100 UNIT/ML SUBCUT SCH ×4 (08:18→20:27)
[2022-10-12 09:36] LABS: % Iron Saturation 7.7 % (18-50)
[2022-10-12 09:44] LABS: 25 Hydroxy Vitamin D Total 41.4 NG/ML (30-100); Folate 20.43 NG/ML (5.38-24.0)
[2022-10-12] MEDS: FUROSEMIDE 80 MG TABLET PO SCH (10:05)
[2022-10-12] MEDS: DAPAGLIFLOZIN 10 MG TABLET PO SCH (10:05)
[2022-10-12] MEDS: POLYETHYLENE GLYCOL POWDER 17 GM PACK PO SCH (10:05)
[2022-10-12] MEDS: APIXABAN 2.5 MG TABLET PO SCH ×2 (10:05→20:26)
[2022-10-12] MEDS: DOCUSATE SODIUM 100 MG CAPSULE PO SCH ×2 (10:05→20:26)
[2022-10-12] MEDS: ASCORBIC ACID 500 MG TABLET PO SCH (10:05)
[2022-10-12] MEDS: MULTIVITAMIN (CENTRUM) TABLET PO SCH (10:05)
[2022-10-12] MEDS: NITROGLYCERIN 2% OINT 1 INCH/GM PACK TOP SCH (10:05)
[2022-10-12] MEDS: ISOSORBIDE MONONITRATE 30 MG TABLET PO SCH (10:05)
[2022-10-12] MEDS: HYDROXYCHLOROQUINE 200 MG TABLET PO SCH (10:06)
[2022-10-12] MEDS: CYANOCOBALAMIN 500 MCG TABLET PO SCH (10:06)
[2022-10-12] MEDS: SPIRONOLACTONE 50 MG TABLET PO SCH (10:06)
[2022-10-12] MEDS: TOLVAPTAN 15 MG TABLET PO SCH (10:06)
[2022-10-12] MEDS: PANTOPRAZOLE 40 MG TABLET PO SCH (10:06)
[2022-10-12] MEDS: POTASSIUM CHLORIDE 20 MEQ TABLET PO SCH (10:06)
[2022-10-12] MEDS: PILOCARPINE 5 MG TABLET PO SCH (10:06)
[2022-10-12] MEDS: CHLORHEXIDINE 0.12% ORAL RINSE 60 ML BOTTLE SWISH/SPIT SCH ×2 (10:07→20:28)
[2022-10-12] MEDS: TOBRAMYCIN/DEXAMETHASONE 0.3%-0.1% OPH SUSP 2.5 ML BOTTLE LEFT EYE SCH ×4 (10:08→20:28)
[2022-10-12] MEDS: NABUMETONE 500 MG TABLET PO SCH ×2 (10:12→20:26)
[2022-10-12] MEDS ORDERED: POTASSIUM CHLORIDE 20 MEQ TABLET PO ONE (13:15)
[2022-10-12] MEDS ORDERED: TUBERCULIN SKIN TEST 0.1 ML SYRINGE INTRADERM ONE (14:00)
[2022-10-12] MEDS: ONDANSETRON 4 MG/2 ML VIAL IV PRN (16:00)
[2022-10-12] MEDS: MORPHINE 2 MG/1 ML SYRINGE IV PRN (18:19)
[2022-10-12] MEDS: ASPIRIN CHEW 81 MG TABLET PO SCH (20:26)
[2022-10-12] MEDS: ROSUVASTATIN 20 MG TABLET PO SCH (20:26)
[2022-10-13] MEDS: ALBUTEROL 2.5 MG/3 ML NEB RESP TX SCH ×3 (00:19→14:19)
[2022-10-13 05:00] LABS: Basophils # 0.1 10*3/uL (0.0-0.2); Basophils % 0.7 % (0.0-0.8); Eosinophils # 0.5 10*3/uL (0.0-0.87); Eosinophils % 5.3 % (0.00-10.9); Hematocrit 30.5 VOL% (35.7-47.0); Hemoglobin 9.7 GM/DL (12.0-16.0); Immature Granulocytes % 0.4 %; Immature Granulocytes Absolute 0.04 #; Lymphocytes # 1.3 10*3/uL (1.4-4.0); Lymphocytes % 14.7 % (21.3-54.2); Mean Corpuscular HGB Conc 31.8 GM/DL (32-36); Mean Corpuscular Volume 92.7 FL (87-102); Monocytes # 0.9 10*3/uL (0.11-0.8); Monocytes % 10.4 % (1.7-12.7); NRBC # 0.02 10*3/uL; Neutrophils % 68.5 % (38.7-73.9); Platelet Count 161 T/CUMM (130-400); Red Blood Count 3.29 MC/CUMM (3.8-5.5); Red Cell Distribution Width 16.5 % (9.3-17.3)
[2022-10-13 05:33] LABS: Albumin 2.6 G/DL (3.4-5.0); Bilirubin,Direct 0.31 MG/DL (0.0-0.20); Bilirubin,Indirect 0.6 MG/DL (0.0-1.0); Bilirubin,Total 0.9 MG/DL (0.20-1.00); Calcium 8.9 MG/DL (8.5-10.1); Osmolality,Calculated 274.2 MOS/KG (273-304); Total Protein 6.1 G/DL (6.4-8.2)
[2022-10-13] MEDS: BRIMONIDINE 0.1% OPH SOLN 5 ML BOTTLE BOTH EYES SCH ×2 (05:36→14:20)
[2022-10-13] MEDS: MORPHINE 2 MG/1 ML SYRINGE IV PRN (06:02)
[2022-10-13] MEDS: INSULIN REGULAR 100 UNIT/ML SUBCUT SCH ×2 (08:33→13:05)
[2022-10-13] MEDS: NABUMETONE 500 MG TABLET PO SCH (09:28)
[2022-10-13] MEDS: POTASSIUM CHLORIDE 20 MEQ TABLET PO SCH (09:28)
[2022-10-13] MEDS: PILOCARPINE 5 MG TABLET PO SCH (09:28)
[2022-10-13] MEDS: SPIRONOLACTONE 50 MG TABLET PO SCH (09:28)
[2022-10-13] MEDS: TOLVAPTAN 15 MG TABLET PO SCH (09:28)
[2022-10-13] MEDS: CYANOCOBALAMIN 500 MCG TABLET PO SCH (09:28)
[2022-10-13] MEDS: HYDROXYCHLOROQUINE 200 MG TABLET PO SCH (09:28)
[2022-10-13] MEDS: MULTIVITAMIN (CENTRUM) TABLET PO SCH (09:28)
[2022-10-13] MEDS: NITROGLYCERIN 2% OINT 1 INCH/GM PACK TOP SCH (09:28)
[2022-10-13] MEDS: TOBRAMYCIN/DEXAMETHASONE 0.3%-0.1% OPH SUSP 2.5 ML BOTTLE LEFT EYE SCH ×2 (09:28→14:19)
[2022-10-13] MEDS: PANTOPRAZOLE 40 MG TABLET PO SCH (09:28)
[2022-10-13] MEDS: CHLORHEXIDINE 0.12% ORAL RINSE 60 ML BOTTLE SWISH/SPIT SCH (09:28)
[2022-10-13] MEDS: POLYETHYLENE GLYCOL POWDER 17 GM PACK PO SCH (09:28)
[2022-10-13] MEDS: FUROSEMIDE 80 MG TABLET PO SCH (09:28)
[2022-10-13] MEDS: DAPAGLIFLOZIN 10 MG TABLET PO SCH (09:28)
[2022-10-13] MEDS: APIXABAN 2.5 MG TABLET PO SCH (09:28)
[2022-10-13] MEDS: DOCUSATE SODIUM 100 MG CAPSULE PO SCH (09:28)
[2022-10-13] MEDS: ASCORBIC ACID 500 MG TABLET PO SCH (09:28)
[2022-10-13] MEDS: ISOSORBIDE MONONITRATE 30 MG TABLET PO SCH (09:28)
[2022-10-13 12:17] VITALS: BP 111/64
[2022-10-13] MEDS ORDERED: APIXABAN 5 MG TABLET PO SCH (21:00)
[2022-10-14] MEDS ORDERED: FERROUS SULFATE 325 MG TABLET PO SCH (09:00)
== END 2022-10-13 15:21 | disposition swing bed (61) | DRG 222 ==
LOC: SUATTDRO → N.ED 01:31 → SUATTDRO 03:40 → N.EDINP 03:40 → N.TELEN 07:24 → N.CC 09-23 08:15 → N.TELES 10-10 14:12
PROVIDERS: ADMIT Internal Medicine Geriatric Medicine; ATTEND Internal Medicine Cardiovascular Disease